=== PATIENT | male | born 1975 | race Caucasian/White ===

== ENCOUNTER → 2024-04-20 | Outpatient (CLI) | payer MEDICAID, SELFPAY ==
--- NOTE | 2024-04-20 14:34 | NEURO ---
NCS and/or EMG Patient Report Ordering Doctor: Rey Steiner DATE OF SERVICE: 04/20/24 Jose presents with complaints of pain and numbness in the left foot. He declines to have testing performed in the right lower limb. Electrodiagnostic findings: Left peroneal motor nerve demonstrates normal distal latency, amplitude and conduction velocity. Normal left tibial motor response. Normal tibial and peroneal F-waves on the left side. Normal left sural and left superficial peroneal responses. Needle EMG testing was performed the left lower limb. All muscles tested showed no evidence of denervation with normal motor unit action potentials. Electrodiagnostic impression: This is a normal electrodiagnostic study of the left lower limb. There is no electrodiagnostic evidence for peripheral neuropathy or lumbosacral radiculopathy. Multi Select Codes Neurology Neurology Interp Codes: 46811-85 Musc test done w/n test comp (interp) and 02502-26 Nrv cndj tst 5-6 studies (interp)
== END | disposition home or self-care (01) ==
PROVIDERS: PCP Student in an Organized Health Care Education/Training Program; Referring Provider Podiatrist; Visit Provider Podiatrist
DX: R20.2 Paresthesia of skin (principal)
CPT/HCPCS: 95886; 95909

== ENCOUNTER → 2024-05-10 | Outpatient (CLI) | payer MEDICAID, SELFPAY ==
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
== END | disposition home or self-care (01) ==
LOC: CT 18:28
PROVIDERS: PCP Student in an Organized Health Care Education/Training Program; Referring Provider Podiatrist; Visit Provider Podiatrist
DX: M19.072 Primary osteoarthritis, left ankle and foot (principal)
CPT/HCPCS: 73700

== ENCOUNTER 2024-06-17 07:34 | Day surgery (SDC) | payer MEDICAID, SELFPAY ==
[2024-06-17] VITALS (10 sets, daily range): BP systolic 90–125; BP diastolic 63–87; PULSE 69–83; RESP 16–18; TEMP 36.2–36.8; O2SAT 93–99; BMI 39.2
--- NOTE | 2024-06-17 08:20 | PCM.PRE.AN2 ---
ASA Classification* ASA Classification ASA Classification: 2 Assessment & Plan Anesthesia* Anesthesia Assessment Anesthesia Assessment: Discussed sedation and/or anesthesia options, risks, benefits, and alternatives with patient/parents/legal guardian/POA. Questions invited. The patient/parents/legal guardian/POA seems to understand and agrees to proceed with anesthesia plan. Reviewed the physical assessment, medical history, allergy history and patient home medications list prior to surgery/procedure/anesthetic and documented any changes. Performed airway and anesthesia risk assessments. Anesthesia Type Anesthesia Type: General Anesthesia Focused Assessment* Airway Assessment Mouth opens: >3 cm Mallampati Score: II Focused Labs Anesthesia Preop lab: CBC CHEMISTRY COAG Pre-Assessment Diagnosis/Proposed Procedure Planned Operative Procedure(s): Left subtaler joint fusion 2,3,4 hammertoe repair Anesthesia History Anesthesia History - clinical laboratory medical director: Anesthesia History - clinical laboratory medical director Hx Hospitalization No 06/16/24 13:17 Any Problems With Anesthesia No 06/16/24 13:17 Cholinesterase deficiency No 06/16/24 13:17 You/Your Family Experience No 06/16/24 13:17 fever (hyperthermia) with Relationship Recent Exposure to Contagious Disease Does patient have nerve No 06/16/24 13:17 stimulator Patient instructed to have device shut off --Does patient have Pacemaker or ICD? When Was Last Pacemaker Check QUESTION #4 FULL TEXT: You/Your Family Experience fever (hyperthermia) with Anesthesia Last Oral Intake Last Oral intake: Last Oral Intake NPO since Meds taken in AM with sips of water? 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 PONV - clinical laboratory medical director: PONV - clinical laboratory medical director Female No 06/16/24 13:17 HX of Motion Sickness No 06/16/24 13:17 HX of N/V After Surgery No 06/16/24 13:17 Non-Smoker Yes 06/16/24 13:17 Duration of Surgery greater Yes 06/16/24 13:17 than 60 minutes Number of Risk Factors 2 06/16/24 13:17 PONV Score Moderate Risk 06/16/24 13:17 Respiratory Assessment Respiratory Assessment - clinical laboratory medical director: Respiratory Tract Infection Hx - clinical laboratory medical director Hx Respiratory Tract Infection No 06/16/24 13:17 STOP Sleep Apnea STOP Sleep Apnea - clinical laboratory medical director: STOP Sleep Apnea - clinical laboratory medical director Hx Hypertension Yes: CONTROLLED WITH MEDS 06/16/24 13:17 Hx Sleep Apnea No 06/16/24 13:17 CPAP BIPAP Do you snore loudly (louder No 06/16/24 13:17 than talking or can be heard Do you often feel tired/ No 06/16/24 13:17 fatigued/ sleepy during daytime? Has anyone observed you stop No 06/16/24 13:17 breathing during sleep? STOP Results Negative 06/16/24 13:17 QUESTION #5 FULL TEXT : Do you snore loudly (louder than talking or can be heard through closed doors)? 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 Specify any problems Hx of Preganancy in last 3 N/A 06/16/24 13:17 Months Nurse Filling Out Transfusion DSCHRIBER 06/16/24 13:17 & Questions: Date: 06/16/24 06/16/24 13:17 Time: 13:18 06/16/24 13:17 Patient unable to answer at this time (ie. confused, unrespo /Reproduction History /Reproductive History - clinical laboratory medical director: /Reproductive Hx- clinical laboratory medical director Hx Now No 06/16/24 13:17 Gestational Age (in weeks): EDC: Hx Hx Para Hx Section SAB No 06/16/24 13:17 Active Medications Active Medications: Current Medications Generic Name Dose Route Start Last Admin Trade Name Freq PRN Reason Stop Dose Admin Cefazolin Sodium 3 gm/ N/A 30 mls @ 600 mls/hr 06/17/24 09:30 IV 06/17/24 09:32 PREOP ONE Sodium Chloride 1,000 mls @ 15 mls/hr 06/17/24 07:40 IV .Q48H WILLIAM PFSH Medical History Wears contact lenses Wears partial dentures Depression Anxiety Arthritis High cholesterol Restless legs Back pain History of ulceration Former smoker COPD (chronic obstructive pulmonary disease) History of pain when walking Cardiology follow-up encounter History of echocardiogram History of stress test Hypertension Hx of pilonidal cyst Home Medications ?Medication ?Instructions ?Recorded ?Last Taken ?Type albuterol sulfate 90 mcg/actuation 2 puff inhalation Q6H PRN PRN 06/16/24 Unknown History aerosol inhaler shortness of breath or wheezing amlodipine 10 mg tablet 10 mg PO BID 06/16/24 06/17/24 History atorvastatin 80 mg tablet 80 mg PO QHS 06/16/24 Unknown History carvedilol 6.25 mg tablet 6.25 mg PO BID 06/16/24 06/17/24 History escitalopram oxalate 10 mg tablet 10 mg PO DAILY 06/16/24 Unknown History losartan 100 mg tablet 100 mg PO DAILY 06/16/24 06/17/24 History tizanidine 6 mg capsule (Zanaflex) 6 mg PO BID RLS 06/16/24 Unknown History Allergy/AdvReac Type Severity Reaction Status Date / Time hydrochlorothiazide (hctz) Allergy Intermediate Other Verified 06/17/24 08:04 ZIA Inhibitors AdvReac Intermediate Other Verified 06/17/24 08:04 Surgical History History of tonsillectomy and adenoidectomy History of lumbar discectomy History of lumbar fusion Social History Smoking Status: Former smoker Review of Systems (Anesthesia) ROS Narrative System reviewed and no additional complaints, except as documented.
[2024-06-17] MEDS: 0.9% Normal Saline (1000mL) 1,000 ML 15 ML IV (08:37)
[2024-06-17] MEDS: Cefazolin 3 GM in Syringe 1 EACH IV (11:18)
--- NOTE | 2024-06-17 12:10 | RAD_ITS ---
EXAM: XR Left Foot, 2 Views CLINICAL INDICATION: LT SUBTALAR JOINT FUSION TECHNIQUE: Frontal and lateral views of the left foot. COMPARISON: No relevant prior studies available. FINDINGS: BONES/JOINTS: Spot fluoroscopic images were used intraoperatively. 18 images were obtained. Multiple fixation hardware is identified from the calcaneus to the talus. Total fluoroscopy time 175.4 seconds. Total radiation dose 2.24 mGy. No acute fracture. No dislocation. SOFT TISSUES: Unremarkable. No radiopaque foreign body. RAD/Foot 2 Views IMPRESSION: Fluoroscopic guidance was used intraoperatively. Please refer to the operative note for further details. Reading Location: [facility]
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
[2024-06-17] MEDS: Ketorolac 30 MG/ML Syringe IV (14:26)
--- NOTE | 2024-06-17 15:05 | PCM.POST.ANE ---
Anesthesia: Postop Eval I Current Vital Signs Temperature: 98.3 F Pulse Rate: 83 Blood Pressure: 116/75 Respiratory Rate: 18 Pulse Ox: 96 Oxygen Delivery Method: Room Air Assessment Airway patent: Yes Spontaneous unlabored respirations: Yes nausea: No Vomiting: No Anesthesia Complication: No Fluid Hydration Crystalloid volume administer (ml): 1,800 Total IV fluid infused: 1,800 Progress Note Anesthesia document: Postop Eval 1 completed: Yes
[2024-06-17] MEDS: oxyCODONE 5 MG Tablet 10 MG PO (15:17)
--- NOTE | 2024-06-17 15:17 | POSTOPAN2_ITS ---
Anesthesia Postop Eval I Sum Postop Eval Completion status Anesthesia document: Postop Eval 1 completed: Yes Anesthesia Postop Eval I Summary Anesthesia Postop Eval I Summary: Anesthesia Postop Eval I: Assessment Summary Airway patent Yes 06/17/24 15:06 [email or web address] Spontaneous unlabored Yes 06/17/24 15:06 [email or web address] [email or web address] respirations Mental status nausea No 06/17/24 15:06 [email or web address] [email or web address] Vomiting No 06/17/24 15:06 DELIVERY [email or web address] Anesthesia Postop Eval I: Fluid Summary Crystalloid volume administer 1,800 06/17/24 15:06 [email or web address] (ml) Colloids volume administered ( ml) Blood Product volume administered (ml) Total IV fluid infused 1,800 06/17/24 15:06 [email or web address] Anesthesia Postop Eval I: Summary Notes Anesthesia Complication No 06/17/24 15:06 [email or web address] Anesthesia Complication Comment: Post-operative progress note Anesthesia: Postop Eval II Evaluation Mental status: Awake Pain Level: 0 nausea: No Vomiting: No
--- NOTE | 2024-06-17 15:17 | PCM.POSTANE2 ---
Anesthesia Postop Eval I Sum Postop Eval Completion status Anesthesia document: Postop Eval 1 completed: Yes Anesthesia Postop Eval I Summary Anesthesia Postop Eval I Summary: Anesthesia Postop Eval I: Assessment Summary Airway patent Yes 06/17/24 15:06 [email or web address] Spontaneous unlabored Yes 06/17/24 15:06 [email or web address] respirations Mental status nausea No 06/17/24 15:06 [email or web address] Vomiting No 06/17/24 15:06 [email or web address] Anesthesia Postop Eval I: Fluid Summary Crystalloid volume administer 1,800 06/17/24 15:06 [email or web address] (ml) Colloids volume administered ( ml) Blood Product volume administered (ml) Total IV fluid infused 1,800 06/17/24 15:06 [email or web address] Anesthesia Postop Eval I: Summary Notes Anesthesia Complication No 06/17/24 15:06 [email or web address] Anesthesia Complication Comment: Post-operative progress note Anesthesia: Postop Eval II Evaluation Mental status: Awake Pain Level: 0 nausea: No Vomiting: No
--- NOTE | 2024-06-17 15:51 | SUR.PHASEII ---
no strikethrough noted when patient sitting up at bedside in phase 2
== END 2024-06-17 15:48 | disposition home or self-care (01) ==
LOC: SDC 07:34 → AC 07:35
PROVIDERS: PCP Student in an Organized Health Care Education/Training Program; Referring Provider Podiatrist; Visit Provider Podiatrist
PROC: (CPT 28725; principal; 2024-06-17 09:15)
DX: M19.072 Primary osteoarthritis, left ankle and foot (principal); J44.9 Chronic obstructive pulmonary disease, unspecified; E66.813 Obesity, class 3; Z68.41 Body mass index [BMI] 40.0-44.9, adult; E11.9 Type 2 diabetes mellitus without complications; M67.02 Short Achilles tendon (acquired), left ankle; M25.372 Other instability, left ankle; I10 Essential (primary) hypertension; Z79.51 Long term (current) use of inhaled steroids; Z79.899 Other long term (current) drug therapy; Z86.73 Personal history of transient ischemic attack (TIA), and cerebral infarction without residual deficits; Z87.891 Personal history of nicotine dependence
CPT/HCPCS: 28725; 29999; 64450; 01480; 73620; 76000; C1713; J2405

== ENCOUNTER → 2024-07-11 | Outpatient (CLI) | payer MEDICAID, SELFPAY | END | disposition home or self-care (01) | LOC: LABSPEC 16:24 | PROVIDERS: PCP Student in an Organized Health Care Education/Training Program; Visit Provider Student in an Organized Health Care Education/Training Program | DX: L97.322 Non-pressure chronic ulcer of left ankle with fat layer exposed (principal) | CPT/HCPCS: 87070; 87077; 87186; 87205 ==

== ENCOUNTER → 2024-10-22 | Outpatient (CLI) | payer MEDICAID, SELFPAY ==
--- NOTE | 2024-10-22 08:00 | CT_ITS ---
PROCEDURE: LEFT EXTREMITY LOWER WITHOUT CONTRAST 10/22/2024 REASON FOR EXAM: PRIMARY OSTEOARTHRITIS, PAIN TECHNIQUE: CT of the left lower ankle/foot without contrast. Multiplanar 2D reconstruction series were provided. One or more dose reduction techniques were used (e.g., Automated exposure control, adjustment of the mA and/or kV according to patient size, use of iterative reconstruction technique). RADIATION DOSE SUMMARY: CTDlvol: 15.35 mGy DLP: 458.6 mGycm COMPARISON: 05/10/2024 FINDINGS: Postoperative changes of talocalcaneal arthrodesis with 2 cannulated screw fixation through the subtalar joint. Hardware is intact, although there is mild lucency about the talar component of the superior fixation screw, suggestive of mild loosening. Multiple ghost tracts through the distal fibula, talus and calcaneus from previous metallic fixation hardware. No acute fracture or dislocation. Moderate degenerative arthrosis of the subtalar joint with loss of joint space, irregular cortical sclerosis and mild marginal osteophytosis. Remaining joint spaces of the ankle and foot are relatively well preserved. No noé osseous erosion/destruction or periosteal reaction. Probable mild pes planus, although this finding is difficult to assess on CT. Alignment is otherwise anatomic, with congruent ankle mortise. Mild dorsal and plantar calcaneal spurring. Mild nonspecific generalized soft tissue swelling/edema about the ankle and foot. No subcutaneous emphysema or soft tissue gas. CT/Extremity Lower without Contra IMPRESSION: 1. No acute or aggressive osseous abnormality. 2. Postoperative changes of talocalcaneal arthrodesis, with intact hardware alt katia there is evidence of mild loosening of the talar aspect of the superior fixation screw. 3. Moderate degenerative arthrosis of the subtalar joint. Reading Location: [id number]
--- OUTSIDE RECORDS SUMMARY | 2024-10-22 08:02 | XMS RPT_ITS | CCD ---
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 the left ankle/foot performed without IV contrast enhancement. Sagittal and coronal reconstructed images were performed for better visualization of the horizontal structures. COMPARISON: None. FINDINGS: Anatomic alignment. There is mild spurring involving the distal tibia. Minimal spurring involving the dorsal anterior talus. Hallux valgus deformity and early degenerative changes involving the 1st MTP joint. No obvious fractures or dislocations are identified. No bony destructive lesions are seen. Os trigonum. Small plantar and posterior calcaneal enthesophytes. Overlying soft tissues appear intact. No radiopaque foreign bodies or drainable fluid collections are seen. CT/Extremity Lower without Contra IMPRESSION: No acute fractures or dislocations are identified. Hallux valgus deformity and mild degenerative changes, as detailed above. One or more dose reduction techniques were used (e.g., Automated exposure control, adjustment of the mA and/or kV according to patient size, use of iterative reconstruction technique). Reading Location: [facility] CC: ADRIANA Steiner; Dr. Nellie Loyola MD Ship Painter Helper: Signed Normal [facility] NCS and/or EMG Patienton NCS and/or EMG Patient [facility] Pulmonary Services/Neurology [address] [place] [address] MR#: [id number] Acct: [id number] Name: JAMES RODRIGUEZ II Rep #: [id number] : 1975 48 From: Amish Valencia MD Referring Dr: Rey Steiner DPM Status: REG CL I Location: PSN Date: 04/20/24 Sex: M C NCS and/or EMG Patient Report Ordering Doctor: Rey Steiner DATE OF SERVICE: 04/20/24 James presents with complaints of pain and numbness in the left foot. He declines to have testing performed in the right lower limb. Electrodiagnostic findings: Left peroneal motor nerve demonstrates normal distal latency, amplitude and conduction velocity. Normal left tibial motor response. Normal tibial and peroneal F-waves on the left side. Normal left sural and left superficial peroneal responses. Needle EMG testing was performed the left lower limb. All muscles tested showed no evidence of denervation with normal motor unit action potentials. Electrodiagnostic impression: This is a normal electrodiagnostic study of the left lower limb. There is no electrodiagnostic evidence for peripheral neuropathy or lumbosacral radiculopathy. Multi Select Codes Neurology Neurology Interp Codes: 50193-05 Musc test done w/n test comp (interp) and 17489-06 Nrv cndj tst 5-6 studies (interp) 04/20/246 Date Amish Valencia MD CC: DPM Dr. Rey Steiner; Dr. Amish Valencia MD; Dr. Nellie Loyola MD Date Dictated: 04/20/241433 Date Transcribed: 04/20/241433 Ship Painter Helper: AA Signed Normal [facility] CBC (NO DIFF)on 03-14-2024 CBC panel Auto (Bld) Normal [facility] Comment on above: Result Comment: CBC( WITHOUT DIFFERENTIAL) Performed By: #### 2 03400 #### [facility],[address] [place] [address] Erythrocyte distribution width (RBC) [Ratio] 13.7 % Normal 12.0 - 15.6 [facility] Comment on above: Performed By: #### 2 63331 #### [facility],[address] [place] [address] 22060 Hematocrit (Bld) [Volume fraction] 44.9 % Normal 40.0 - 52.0 [facility] Comment on above: Performed By: #### 2 87467 #### [facility],[address] [place] [address] 97374 Hemoglobin (Bld) [Mass/Vol] 14.8 g/dL Normal 13.0 - 17.5 [facility] Comment on above: Performed By: #### 2 63255 #### [facility],[address] [place] [address] 99773 MCH (RBC) [Entitic mass] 31 pg Normal 27 - 33 [facility] Comment on above: Performed By: #### 2 16390 #### [facility],[address] [place] [address] 45659 MCHC 33 X10 3 Normal 32 - 36 [facility] Comment on above: Performed By: #### 2 59156 #### [facility],[address] [place] [address] 86034 MCV (RBC) [Entitic vol] 93 fL Normal 81 - 98 [facility] Comment on above: Performed By: #### 2 61008 #### [facility],[address] [place] [address] 64772 PLATELET 337 x10EE3/UL Normal 150 - 450 [facility] Comment on above: Performed By: #### 2 27547 #### [facility],[address] [place] [address] 84635 Platelet mean volume (Bld) [Entitic vol] 7.5 fL Normal 6.4 - 10.5 [facility] Comment on above: Performed By: #### 2 92489 #### [facility],[address] [place] [address] 87232 RBC 4.81 x 10EE6/UL Normal 4.50 - 6.00 [facility] Comment on above: Performed By: #### 2 39836 #### [facility],[address] [place] [address] 98140 WBC 7.9 x 10EE3/UL Normal 4.5 - 10.8 [facility] Comment on above: Performed By: #### 2 36721 #### [facility],[address] [place] [address] 86297 CMP with eGFRon 03-14-2024 AGE 48 years Normal [facility] Comment on above: Performed By: #### 2 36036 #### [facility],[address] [place] [address] 86301 Albumin [Mass/Vol] 3.5 g/dL Normal 3.4 - 5.0 [facility] Comment on above: Performed By: #### 2 69066 #### [facility],[address] [place] [address] 13004 Albumin/Globulin [Mass ratio] 0.9 {ratio} Normal 0.9 - 1.6 [facility] Comment on above: Performed By: #### 2 09438 #### [facility],[address] [place] [address] 81617 ALK PHOS 91 U/L Normal 46 - 116 [facility] Comment on above: Performed By: #### 2 01052 #### [facility],[address] [place] [address] 46089 ALT [Catalytic activity/Vol] 54 U/L Normal 16 - 63 [facility] Comment on above: Performed By: #### 2 59527 #### [facility],[address] [place] [address] 45867 Anion gap [Moles/Vol] 11 mmol/L Normal 10 - 20 [facility] Comment on above: Performed By: #### 2 13535 #### [facility],[address] [place] [address] 41206 AST [Catalytic activity/Vol] 24 U/L Normal 15 - 37 [facility] Comment on above: Performed By: #### 2 42805 #### [facility],[address] [place] [address] 08077 B/C RATIO 17 ratio Normal 0 - 30 [facility] Comment on above: Performed By: #### 2 45398 #### [facility],[address] [place] [address] 33754 Bilirubin [Mass/Vol] 0.4 mg/dL Normal 0.2 - 1.0 [facility] Comment on above: Performed By: #### 2 19695 #### [facility],[address] [place] [address] 66762 Calcium [Mass/Vol] 8.9 mg/dL Normal 8.5 - 10.1 [facility] Comment on above: Performed By: #### 2 08286 #### [facility],[address] [place] [address] 17354 Chloride [Moles/Vol] 106 mmol/L Normal 98 - 107 [facility] Comment on above: Performed By: #### 2 79953 #### [facility],[address] [place] [address] 43332 CMP with eGFR Normal [facility] Comment on above: Result Comment: COMP REHENSIVE METABOLIC PANEL Performed By: #### 2 09169 #### [facility],[address] [place] [address] 47000 CO2 [Moles/Vol] 27.5 mmol/L Normal 21.0 - 32.0 [facility] Comment on above: Performed By: #### 2 59046 #### [facility],[address] [place] [address] 43151 Creatinine [Mass/Vol] 1.15 mg/dL Normal 0.70 - 1.30 [facility] Comment on above: Performed By: #### 2 40801 #### [facility],[address] [place] [address] 09100 GFR/1.73 sq M.predicted among non-blacks MDRD (S/P/Bld) [Vol rate/Area] mL/min/{1.73_m2} Normal 60 - 999 [facility] Comment on above: Performed By: #### 2 11622 #### [facility],[address] [place] [address] 00738 Result Comment: ACCO RDING TO THE NATIONAL KIDNEY DISEASE EDUCATION PROGRAM(NKDE), A NORMAL eGFR IS A VALUE GREATER THAN OR EQUAL TO 60 ML/MIN/1.73 SQ METERS. CHRONIC KIDNEY DISEASE: <60mL/MIN/1.73 SQ METERS KIDNEY FAILURE: <15mL/MIN/1.73 SQ METERS THIS TEST SHOULD ONLY BE USED FOR PATIENTS 18 YEARS OF AGE AND OLDER. Globulin (S) [Mass/Vol] 4.1 g/dL High 1.5 - 3.8 [facility] Comment on above: Performed By: #### 2 76293 #### [facility],[address] [place] [address] 82374 Glucose [Mass/Vol] 105 mg/dL Normal 74 - 106 [facility] Comment on above: Performed By: #### 2 99497 #### [facility],[address] [place] [address] 79814 Potassium [Moles/Vol] 3.6 mmol/L Normal 3.5 - 5.1 [facility] Comment on above: Performed By: #### 2 96309 #### [facility],[address] [place] [address] 22745 Protein [Mass/Vol] 7.6 g/dL Normal 6.4 - 8.2 [facility] Comment on above: Performed By: #### 2 31275 #### [facility],[address] [place] [address] 64447 Sodium [Moles/Vol] 141 mmol/L Normal 136 - 145 [facility] Comment on above: Performed By: #### 2 49228 #### [facility],[address] [place] [address] 97711 Urea nitrogen [Mass/Vol] 19 mg/dL High 7 - 18 [facility] Comment on above: Performed By: #### 2 52039 #### [facility],[address] [place] [address] 20932 LIPID PROFILEon 03-14-2024 Cholesterol [Mass/Vol] 175 mg/dL Normal 0 - 240 [facility] Comment on above: Performed By: #### 2 46898 #### [facility],[address] [place] [address] 25297 Cholesterol in HDL [Mass/Vol] 47 mg/dL Normal 40 - 60 [facility] Comment on above: Performed By: #### 2 99019 #### [facility],[address] [place] [address] 55121 Cholesterol in LDL [Mass/Vol] 114 mg/dL Normal 0 - 129 [facility] Comment on above: Performed By: #### 2 08703 #### [facility],[address] [place] [address] 64564 Cholesterol.total/Ch olesterol in HDL [Mass ratio] 3.7 {ratio} Normal 0.0 - 5.0 [facility] Comment on above: Performed By: #### 2 61552 #### [facility],[address] [place] [address] 09295 Lipid 1996 panel Normal [facility] Comment on above: Result Comment: LIPI D PROFILE Performed By: #### 2 10702 #### [facility],[address] [place] [address] 38292 Triglyceride [Mass/Vol] 72 mg/dL Normal 0 - 150 [facility] Comment on above: Performed By: #### 2 22234 #### [facility],[address] [place] [address] 83123 TSHon 03-14-2024 TSH Qn 2.32 m[IU]/L Normal 0.35 - 3.74 [facility] Comment on above: Performed By: #### 2 90246 #### [facility],[address] [place] [address] 50772 FOOT COMPLETE LTon FOOT COMPLETE LT [address] [address] Patient: JAMES RODRIGUEZ Phone#: : 1975 Age: 48 Gender: M Pt. Type: Out Account: [id number] Location: [facility] Ordering: NELLIE LOYOLA Exam Date: 03/04/2024/15:39 Family Phys: Charge Code: 665735 Physician: Nobles Order #: [id number] Dose#: PROCEDURE: X-RAY FOOT LT COMPLETE MIN 3 VIEWS COMPARISON: None. INDICATIONS: Chronic foot pain. FINDINGS: BONES: Normal. No significant arthropathy or acute abnormality. SOFT TISSUES: Negative. No visible soft tissue swelling. EFFUSION: None visible. OTHER: Negative. CONCLUSION: No acute disease. Dictated by: Anitha Sanz MD on 03/04/2024 at 15:53 Approved by: Anitha Sanz MD on 03/04/2024 at 15:54 Normal [facility] EMERGENCY DEPARTMENTon 05-10 [place] [address] HEALTH INFORMATION MANAGEMENT EMERGENCY DEPARTMENT : [phone] Signed with Sandeep Patient: JAMES RODRIGUEZ II Acct:[id number] MR UN: [id number] : 1975 Sex: M Loc: ED ADM Date: Room/Bed: DISC Date: 05/03/21 History of Present Illness - General Symptom onset: TODAY HPI: PATIENT ARRIVES BY [facility] FROM [facility] DUE TO HIGH BLOOD PRESSURE. EMS STATES PATIENTS BP WAS 190/150'S AND THAT PATIENT HAD BEEN GIVEN THE WRONG BLOOD PRESSURE MEDS UP TILL TODAY. UPON ARRIVAL HERE BP 139/72. ER attending note: Nursing note reviewed and appreciated. Patient was brought into the emergency room from [facility] due to high blood pressure there was some concern about mixup of his medication.. His blood pressure however at arrival was 139/72. Patient admitted some intermittent discomfort in the chest denies pain in the arms or jaw or cold sweats, dizziness or lightheadedness, blackout or pass out. Denies any dizziness lightheadedness. Denies any pain or swelling legs. Also denies any vomiting or diarrhea. He denies any substance abuse. Nurses Notes Reviewed and Agreed With?: Yes EMS Run Sheet Reviewed: No Source: Patient, RN notes reviewed Mode of Transport: Ambulatory - General Chief Complaint: Hypertension Time Seen by Provider: 05/03/21 17:34 - Related Data Home Medications Medication Instructions Recorded Confirmed Prednisone [Prednisone 20 mg 60 mg PO DAILY #15 tablet 07/19/18 Tablet] Allergies Allergy/AdvReac Type Severity Reaction Status Date / Time ZIA Inhibitors AdvReac Mild Verified 08/31/18 17:09 Review of System - Constitutional Constitutional: Present: see HPI, Well developed, Well nourished, well hydrated, Non-toxic, weakness. Absent: chills, diaphoresis, fever, malaise, Cachectic, Malnourished, Lethargic, Dry/Cracked lips, Dry Mucous Membranes - Nose,Throat,Mouth Nose (ROS): Present: no symptoms reported Throat: Present: no symptoms reported Mouth: Present: no symptoms reported - Respiratory Respiratory: Present: no symptoms reported. Absent: cough, sputum, orthopnea, short of breath, stridor, wheezing, hemoptysis - CV Cardiology: Present: other (High blood pressure that she had normal blood pressure in the ED). Absent: chest pain, edema, palpitations, syncope, pleuritic CP, CP with movement - GI Gastrointestinal/Abdominal : Present: no symptoms reported. Absent: abdominal pain, constipation, diarrhea, incontinent of stool, nausea, vomiting - Genitourinary Symptoms: Absent: no symptoms reported, flank pain, hematuria, incontinence - Neuro Neurological: Absent: headache, numbness, paresthesia, seizure, tingling, tremors, weakness, saddle anesthesia ED PMH/Social HX/Family HX - Respiratory Hx Respiratory Disorders: No - Cardiovascular Hx Cardiac Disorders: Yes PMH--Cardiovascular: HTN Other CV PSH: ENLARGED HEART - Neurological Hx Neurological Disorder: Yes Other Neuro PMH: STROKE - Endocrine Hx Endocrine Disorders: Yes PMH--Endocrine History: Hypothyroidism - Gastrointestinal Hx Gastrointestinal Disorders: No - Genitourinary Hx Genitourinary Disorders: No - Musculoskeletal Hx Musculoskeletal Disorders: No - Psychological Hx Psychosocial Problems: No - HEENT Hx Ear, Nose Throat Disorders: No - Cancer Hx Cancer: No - Social History Able to Read: Yes Able to Write: Yes Smoking Status: Smoking Status Unknown Hx Chewing Tobacco Use: No Hx Physical Abuse: No Hx Emotional Abuse: No Hx Suspected Abuse: No - [place]/Gender ID What is your current Gender Identity? Choose all that Apply: Male - [place]-Suicide Severity Rating Scale 1) Wish to be :: No 2) Suicidal Thoughts:: No 6) Suicidal Behavior Question (A): LIFETIME: No 6) Suicidal Behavior Question (B): PAST 3 MONTHS: No General Exam - General Constitutional: Present: see HPI, Well developed, Well nourished, well hydrated. Absent: Non-toxic, chills, diaphoresis, fever, malaise, weakness, Lethargic, Dry/Cracked lips - Head Head exam: Present: atraumatic, normocephalic, normal inspection - Eye Eye exam: Present: normal apperance, normal accomodation - ENT ENT exam: Present: normal orophraynx, No Nasal Discharge, normal external ear exam - Neck Neck exam: Present: full ROM, Supple. Absent: tenderness, meningismus - Respiratory Respiratory exam: Present: lungs clear and equal bilaterally. Absent: respiratory distress, rhonchi, stridor, decreased breath sounds, accessory muscle use, chest wall tenderness, prolonged expiratory phase, Intercostal Retractions, Other Retractions, Flail segment, Ecchymosis, Crepitus - Ca (more content not included)... Normal [facility] CBC w/Auto Differentialon Basophils Abs. # 0.04 K/uL Normal 0.00-0.10 [facility] Comment on above: Performed By: #### C BCS #### [address] [place] [address] Basophils/100 WBC (Bld) 0.5 % Normal 0.2-1.0 [facility] Comment on above: Performed By: #### C BCS #### [facility] [address] [place] [address] Eosinophils (Bld) [#/Vol] 0.20 10*3/uL Normal 0.00-0.20 [facility] Comment on above: Performed By: #### C BCS #### [facility] [address] [place] [address] Eosinophils/100 WBC (Bld) 2.6 % Normal 0.9-2.9 [facility] Comment on above: Performed By: #### C BCS #### [facility] [address] [place] [address] Erythrocyte distribution width (RBC) [Ratio] 13.2 % Normal 11.5-14.5 [facility] Comment on above: Performed By: #### C BCS #### [facility] [address] [place] [address] Hematocrit (Bld) [Volume fraction] 40.9 % Normal 36.7-50.6 [facility] Comment on above: Performed By: #### C BCS #### [facility] [address] [place] [address] Hemoglobin (Bld) [Mass/Vol] 13.3 g/dL Normal 12.4-17.3 [facility] Comment on above: Performed By: #### C BCS #### [facility] [address] [place] [address] Imm Grans % 0.10 % Normal 0.00-1.00 [facility] Comment on above: Performed By: #### C BCS #### [facility] [place] [address] [place] [address] Imm Grans Absolute # 0.01 K/uL Normal 0.00-0.10 [facility] Comment on above: Performed By: #### C BCS #### [facility] [address] [place] [address] Lymphocytes (Bld) [#/Vol] 2.20 10*3/uL Normal 1.30-2.90 [facility] Comment on above: Performed By: #### C BCS #### [facility] [address] [place] [address] Lymphocytes/100 WBC (Bld) 28.5 % Normal 17.0-45.5 [facility] Comment on above: Performed By: #### C BCS #### [facility] [address] [place] [address] MCH (RBC) [Entitic mass] 30.0 pg Normal 27.0-31.0 [facility] Comment on above: Performed By: #### C BCS #### [facility] [address] [place] [address] MCHC (RBC) [Mass/Vol] 32.5 g/dL Low 33.0-37.0 [facility] Comment on above: Performed By: #### C BCS #### [facility] [address] [place] [address] MCV (RBC) [Entitic vol] 92.1 fL Normal 80.0-94.0 [facility] Comment on above: Performed By: #### C BCS #### [facility] [address] [place] [address] Monocytes (Bld) [#/Vol] 0.90 10*3/uL High 0.30-0.80 [facility] Comment on above: Performed By: #### C BCS #### [facility] [place] [address] [place] [address] Monocytes/100 WBC (Bld) 11.5 % Normal 5.5-11.7 [facility] Comment on above: Performed By: #### C BCS #### [facility] [place] [address] [place] [address] Neutrophils Abs. # 4.36 K/uL Normal 2.20-4.80 [facility] Comment on above: Performed By: #### C BCS #### [facility] [place] [address] [facility] [place] [address] Neutrophils/100 WBC (Bld) 56.8 % Normal 43.0-65.0 [facility] Comment on above: Performed By: #### C BCS #### [facility] [place] [address] [facility] [place] [address] Platelet mean volume (Bld) [Entitic vol] 9.2 fL Normal 7.4-10.4 [facility] Comment on above: Performed By: #### C BCS #### [facility] [place] [address] [facility] [place] [address] Platelets (Bld) [#/Vol] 287 10*3/uL Normal 148-402 [facility] Comment on above: Performed By: #### C BCS #### [facility] [place] [address] [facility] [place] [address] RBC (Bld) [#/Vol] 4.44 10*6/uL Normal 4.13-5.[address] [facility] Comment on above: Performed By: #### C BCS #### [facility] [place] [address] [facility] [place] [address] WBC (Bld) [#/Vol] 7.7 10*3/uL Normal 3.6-10.8 [facility] Comment on above: Performed By: #### [facility] #### [facility] [address] [address] CHEST APon 05-03-2021 CHEST AP EXAMINATION: ONE XRAY VIEW OF THE CHEST 05/03/2021 6:14 pm COMPARISON: Chest, single view 04/07/2019 HISTORY: ORDERING SYSTEM PROVIDED HISTORY: Chest Pain FINDINGS: A single portable AP view of the chest was obtained. Heart, mediastinum, and pulmonary vasculature are within normal limits. Lungs and pleural spaces are clear. IMPRESSION: No active cardiopulmonary disease. Normal [facility] CT BRAIN WOon 05-03-2021 CT BRAIN WO EXAMINATION: CT OF THE HEAD WITHOUT CONTRAST 05/03/2021 8:29 pm TECHNIQUE: CT of the head was performed without the administration of intravenous contrast. Dose modulation, iterative reconstruction, and/or weight based adjustment of the mA/kV was utilized to reduce the radiation dose to as low as reasonably achievable. COMPARISON: None. HISTORY: ORDERING SYSTEM PROVIDED HISTORY: HTN FINDINGS: BRAIN/VENTRICLES: There is no acute intracranial hemorrhage, mass effect or midline shift. No abnormal extra-axial fluid collection. The garcia-white differentiation is maintained without evidence of an acute infarct. There is no evidence of hydrocephalus. ORBITS: The visualized portion of the orbits demonstrate no acute abnormality. SINUSES: The visualized paranasal sinuses and mastoid air cells demonstrate no acute abnormality. SOFT TISSUES/SKULL: No acute abnormality of the visualized skull or soft tissues. IMPRESSION: No acute intracranial abnormality. Normal [facility] CTA CHEST Won 05-03-2021 CTA CHEST W EXAMINATION: CTA OF THE CHEST 05/03/2021 8:35 pm TECHNIQUE: CTA of the chest was performed after the administration of intravenous contrast. Multiplanar reformatted images are provided for review. MIP images are provided for review. Dose modulation, iterative reconstruction, and/or weight based adjustment of the mA/kV was utilized to reduce the radiation dose to as low as reasonably achievable. COMPARISON: None. HISTORY: ORDERING SYSTEM PROVIDED HISTORY: Elevated D-dimer, right leg edema FINDINGS: Pulmonary Arteries: Pulmonary arteries are adequately opacified for evaluation. No evidence of intraluminal filling defect to suggest pulmonary embolism. Main pulmonary artery is normal in caliber. Mediastinum: No evidence of mediastinal lymphadenopathy. The heart and pericardium demonstrate no acute abnormality. There is no acute abnormality of the thoracic aorta. Lungs/pleura: The lungs are without acute process. No focal consolidation or pulmonary edema. No evidence of pleural effusion or pneumothorax. Upper Abdomen: Limited images of the upper abdomen are unremarkable. Soft Tissues/Bones: No acute bone or soft tissue abnormality. IMPRESSION: No evidence of pulmonary embolism or acute pulmonary abnormality. Normal [facility] Comprehensive Metabolic Pane eva 05-03-2021 Albumin [Mass/Vol] 3.6 g/dL Normal 3.4-5.0 [facility] Comment on above: Performed By: #### C MP ####[facility] [place] [address] Albumin/Globulin [Mass ratio] 0.9 {ratio} Low 1.1-2.5 [facility] Comment on above: Performed By: #### C MP ####[facility] [place] [address] ALP [Catalytic activity/Vol] 110 U/L Normal 54-112 [facility] Comment on above: Performed By: #### C MP ####[facility] [place] [address] ALT [Catalytic activity/Vol] 37 U/L Normal 13-66 [facility] Comment on above: Performed By: #### C MP ####[facility] [place] [address] Anion gap [Moles/Vol] 11.7 mmol/L Normal 8.0-16.0 [facility] Comment on above: Performed By: #### C MP ####[facility] [place] [address] AST [Catalytic activity/Vol] 20 U/L Normal 3-39 [facility] Comment on above: Performed By: #### C MP ####[facility] [address] [place] [address] Bilirubin [Mass/Vol] 0.18 mg/dL Normal 0.00-0.99 [facility] Comment on above: Performed By: #### C MP ####[facility] [address] [place] [address] Calcium [Mass/Vol] 8.7 mg/dL Normal 8.2-10.0 [facility] Comment on above: Performed By: #### C MP ####[facility] [address] [place] [address] Chloride [Moles/Vol] 105 mmol/L Normal 94-110 [facility] Comment on above: Performed By: #### C MP ####[facility] [address] [place] [address] CO2 [Moles/Vol] 29 mmol/L Normal 21-34 [facility] Comment on above: Performed By: #### C MP ####[facility] [address] [place] [address] Creatinine [Mass/Vol] 0.99 mg/dL Normal 0.50-1.17 [facility] Comment on above: Performed By: #### C MP ####[facility] [address] [place] [address] EGFR Other Races >60 Normal >60 [facility] Comment on above: Performed By: #### C MP ####[facility] [address] [place] [address] GFR/1.73 sq M.predicted among blacks MDRD (S/P/Bld) [Vol rate/Area] mL/min/{1.73_m2} Normal >60 [facility] Comment on above: Result Comment: Driver'S License Examiner samuel Kidney Disease less than 60 mL/min/1.73 m2 Kidney Failure less than 15 mL/min/1.73 m2 Average estimated GFR by age: 40-49 years 99 mL/min/1.73 m2 Performed By: #### C MP ####[facility] [address] [facility] [address] Globulin (S) [Mass/Vol] 3.9 g/dL Normal 1.5-4.5 [facility] Comment on above: Performed By: #### C MP ####[facility] [address] [facility] [address] Glucose [Mass/Vol] 99 mg/dL Normal 65-100 [facility] Comment on above: Performed By: #### C MP ####[facility] [address] [facility] [address] Potassium [Moles/Vol] 3.7 mmol/L Normal 3.3-5.1 [facility] Comment on above: Performed By: #### C MP ####[facility] [place] [address] Protein [Mass/Vol] 7.5 g/dL Normal 6.1-8.2 [facility] Comment on above: Performed By: #### C MP ####[facility] [address] [facility] [address] Sodium [Moles/Vol] 142 mmol/L Normal 132-145 [facility] Comment on above: Performed By: #### C MP ####[facility] [address] [facility] [address] Urea nitrogen [Mass/Vol] 12.1 mg/dL Normal 3.2-26.9 [facility] Comment on above: Performed By: #### C MP ####[facility] [place] [address] Urea nitrogen/Creatinine [Mass ratio] 12 mg/mg Normal 6-20 [facility] Comment on above: Performed By: #### C MP ####[facility] [place] [address] D-Dimeron 05-03-2021 D-Dimer 0.60 mg/L FEU Critically high 0.00-0.49 [facility] Comment on above: Result Comment: Nega tive Predictive Value = <0.50 mg/L FEU This D-dimer assay may be used in conjunction with a non-high clinical pretest probability (PTP) assessment model to exclude pulmonary embolism (PE) disease. In addition, it is indicated as an aid in the exclusion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 Patient Name: JAMES RODRIGUEZ Gender: Male : 1975 Age: 43 Years Message Text: [facility] [id number] denial mmo need correct pt type Day Reviewed: 02/24/2019 11:56:00 EST Review Type: Day 1 Guideline: PAYER DENIAL. Review Outcome: Met Reviewer: Rosa Hickman RN System: [employer] Manual Episode: Response Reference Number: [id number] Case Status: See Messages Message: 02/22/2019 16:03:25 Per physician reviewer DRG admit denied. * Member with leg rash, no cellulitis, no hemodynamic instability, and afebrile, intensity of service not beyond observation. * The attending physician, nurse practitioner or physician s metal moulder's assistant who is actively providing care may schedule a phone conversation within 14 calendar days of the denial by calling [phone], option #1 then option #1 again prior to filing an appeal. Any additional information submitted in writing will be processed as an appeal. Next Review Date: 02/22/2019 Approved To Date: CASE FORWARD TO DENIALS TEAM. Secondary Review: Reason for Referral: Issue Denial External Reviewer: Yes Normal [facility] CAL Reflexon 02-28-2019 Nuclear Ab Qn (S) Positive Abnormal NEGATIVE-N E GATIVE [facility] Comment on above: Performed By: #### 3 0341-2 #### SAH SED RATE #### 54033-6 #### [facility], [address] [place] [address]. CAL Reflex Panelon 9 Nuclear Ab (S) [Titer] 1:80 Abnormal <1:80 [facility] Comment on above: Performed By: #### 3 173-2, 5902-2 #### [facility], [address] [place] [address]. Nuclear Ab pattern (S) [Interp] SEENOTE Normal [facility] Comment on above: Result Comment: Felisha shyam: Homogeneous The Homogeneous pattern is associated with antibodies to double-stranded DNA or histones. This pattern is seen most frequently in systemic lupus erythematosus (SLE) and drug-induced lupus. TEST PERFORMED BY Jascha [address] [place] [id number] Performed By: #### 3 173-2, 5902-2 #### [facility], [address], [place]. Nuclear Ab Ql (S) Positive Abnormal NEGATIVE-N E GATIVE [facility] Comment on above: Performed By: #### 3 173-2, 5902-2 #### [facility], [address], [place]. Anti DIRECTOR OF GOVERNMENT SALES Antibodyon 02-29-20 19 Ribonucleoprotein extractable nuclear Ab Ql (S) 2 Unit Normal <20 [facility] Comment on above: Result Comment: Refe rence Range: Negative <20 Units Weak Positive 20 - 39 Units Moderate Positive 40 - 80 Units Strong Positive >80 Units Performed By: #### 3 173-2, 5902-2 #### [facility], [address], [place]. Anti Scleroderma (Scl-70)on 02-28-2019 SCL-70 extractable nuclear Ab Ql (S) 14 Unit Normal <20 [facility] Comment on above: Result Comment: Refe rence Range: Negative >20 Units Weak Positive 20 - 39 Units Moderate Positive 40 - 80 Units Strong Positive >80 Units Performed By: #### 3 173-2, 5902-2 #### [facility], [address], [place]. Anti Avila Antibodyon 2018 Avila extractable nuclear Ab Qn (S) 2 Unit Normal <20 [facility] Comment on above: Result Comment: Refe rence Range: Negative <20 Units Weak Positive 20 - 39 Units Moderate Positive 40 - 80 Units Strong Positive >80 Units Performed By: #### 3 173-2, 5902-2 #### [facility], [address] [place], [place]. DNA Antibody Double Strandon 02-28-2019 DNA double strand Ab Qn (S) 50 [IU]/mL Normal <200 [facility] Comment on above: Result Comment: Anti -dsDNA range Interpretation 0 - 200 IU/mL Negative 201 - 300 IU/mL Equivocal 301 - 400 IU/mL Weak Positive 401 - 800 IU/mL Moderate Positive >=801 IU/mL Strong Positive Performed By: #### 3 0341-2 #### SAH SED RATE #### 21857-4 #### [facility], [address], [place]. JO1 Antibodyon 02-28-2019 Krystin-1 extractable nuclear Ab Ql (S) 2.0 Unit Normal [facility] Comment on above: Result Comment: Krystin-1 IgG Antibody Interpretation: Negative: <20 Units Weak Positive: 20-39 Units Moderate Positive: 40-80 Units Strong Positive: >80 Units Performed By: #### 3 173-2, 5902-2 #### [facility], [address], [place]. Sjogren's Antibodies (SSA/SS B)on 02-28-2019 Sjogrens syndrome-A extractable nuclear Ab Qn (S) 3 Unit Normal <20 [facility] Comment on above: Result Comment: Refe rence Range: Negative <20 Units Weak Positive 20 - 39 Units Moderate Positive 40 - 80 Units Strong Positive >80 Units Performed By: #### 3 173-2, 5902-2 #### [facility], [address], [place]. Sjogrens syndrome-B extractable nuclear Ab Qn (S) 3 Unit Normal <20 [facility] Comment on above: Result Comment: Refe rence Range: Negative <20 Units Weak Positive 20 - 39 Units Moderate Positive 40 - 80 Units Strong Positive >80 Units Performed By: #### 3 173-2, 5902-2 #### [facility], [address], [place]. HIV 1 Antibodyon 02-23-2019 HIV 1 Ab Ql (S) NONREAC Normal NONREAC [facility] Comment on above: Result Comment: This is a 4th generation test (P24 AG,HIV-1 AB, HIV-2 AB) Specimens with preliminary reactive results will be confirmed by HIV1/2 Differentiation test ([employer]). THE IDENTITY OF A PERSON ON WHOM AN HIV TEST HAS BEEN ORDERED AND THE RESULTS OF THAT TEST ARE CONFIDENTIAL This information is confidential and protected from disclosure by state law. You shall make no further disclosure of this information without the specific written and informed release of the individual tested or as otherwise permitted by law. A person who knowingly violates this confidentiality may be found liable in a civil action and be responsible for compensitory damages and equitable relief. Performed By: #### 3 173-2, 5902-2 #### [facility], [address] [place] [address]. Neutrophil Cytoplasm Antibod y IDon 02-23-2019 Neutrophil cytoplasmic Ab.classic Qn (S) <1:20 Normal <1:20 [facility] Comment on above: Result Comment: Test performed at [facility], [address] [place] [address] Michael Thompson MD - District Adviser Performed By: #### 3 0341-2 #### SAH SED RATE #### 73735-6 #### [facility], [address] [place] [address]. Neutrophil cytoplasmic Ab.perinuclear Qn (S) <1:20 Normal <1:20 [facility] Comment on above: Performed By: #### 3 0341-2 #### SAH SED RATE #### 61880-8 #### [facility], [address] [place] [address]. Patient Summaryon 02-23-2019 Patient Summary PATIENT DISCHARGE INSTRUCTIONS If you are having an emergency and are not able to reach your physician, CALL 911 or go to the nearest emergency room and take this document with you. [facility] 02/23/19 10:01 [address] [place]. [address] PATIENT INFORMATION ------ Name: JAMES RODRIGUEZ Address: [address] [place] [id number] Age: 43 Years Phone: [phone] : 1975 12:00 Sex: Male Race: White Ethnicity: Not Hispan/Lat Admitted From: [facility] Medical Service: Internal Medicine Nurse Unit/Bed: (SD) 3P 0381-01 Admit Date: 02/22/2019 01:24 PCP: Manuel Sue NP PHYSICIANS INVOLVED WITH CARE Attending Physicians: None found Admitting Physician: Tim Hayes MD - Internal Medicine Primary Care Physician:Manuel Sue NP,Nurse Practitioner, - Consults: Mi WALDRON , Patric Bell - Internal Medicine, Infectious Disease YOU WERE TREATED IN THE HOSPITAL FOR: 1:Atypical rash; 2:Cellulitis of leg FOLLOW-UP APPOINTMENTS: Provider: Specialty: Address: Date: Manuel Sue NP Nurse Practitioner [address] [place] [address] [address] [facility] [address] (1) 7 to 10 days ALLERGIES: ZIA inhibitors : Reaction:Cough Detergents : Reaction:Hives or rash MEASUREMENTS: Last Charted: Weight: Admission 118.0 kg /260 lbs 2 oz ( 02/22/19 00:49:00 ) MEDICATIONS For: JAMES RODRIGUEZ This is your list of medication(s). Keep it with you at all times. Your doctor may have changed doses, add, held or stopped some of your medications. Please share this information with your family doctor. Carry this list of medications with you in case of an emergency. Update it when medications are stopped, doses are changed, or new medications (including bhny-cvl-dxdxout products) are added. Ask your doctor if you have any questions. THESE ARE THE MEDICATIONS YOU SHOULD BE TAKING clindamycin (clindamycin 150 mg oral capsule) 2 Capsule By Mouth 3 Times a day for 7 Days. Refills: 0. multivitamin (One-A-Day Multivitamin) 1 Tab(s) By Mouth once a day. MEDICATION CHANGE DETAILS (Not your Final Home Medication List) During the course of your visit, your home medication list was updated with the most current information. The details of those changes are shown below: NEW MEDICATIONS [facility] [place], [place], [address] [place], [place] [id number], [phone] clindamycin (clindamycin 150 mg oral capsule) 2 Capsule By Mouth 3 Times a day for 7 Days. Refills: 0. Comment UPDATED MEDICATIONS None UNCHANGED MEDICATIONS Other Medications multivitamin (One-A-Day Multivitamin) 1 Tab(s) By Mouth once a day. Comment STOP TAKING THESE MEDICATIONS valACYclovir (Valtrex 1 gm oral tablet) 1 Tab(s) By Mouth 3 Times a day. x10 days filled .09.22 but pt states he has a few doses left. DO NOT TAKE UNTIL YOU TALK TO YOUR DOCTOR None NON-MEDICATION PRESCRIPTION SCHEDULING PHONE NUMBER: SELECTED LAB RESULTS Lab Result Order Date Hemoglobin 13.8 gm/dL 02/22/2019 Hematocrit 40.9 % 02/22/2019 WBC Count 7.5 thou/mcL 02/22/2019 Platelet Count 289 thou/mcL 02/22/2019 Prothrombin Time (PT) 13.6 Sec 02/21/2019 INR 1.02 02/21/2019 Sodium Level 141 mMol/L 02/22/2019 Potassium Level 3.8 mMol/L 02/22/2019 Creatinine 1.15 mg/dL 02/22/2019 BUN 18 mg/dL 02/22/2019 Total Bilirubin 0.9 mg/dL 02/21/2019 Glucose Level 117 mg/dL 02/22/2019 ADVANCE DIRECTIVE/HEALTH CARE DECISIONS: Advance Directive/Health Care Decisions Executed by Patient: : No Information Obtained From: Patient Advance Directive Health Care Information Offered: Patient declines DISCHARGE INSTRUCTIONS: Discharge Activities As tolerated. Notify Physician Worsening or recurring symptoms. SMOKING CESSATION: Tobacco use is the number one preventable cause of and disease. Please stop all use of tobacco. Talk with your physician or call the [place] [employer] at or visit their web site atwww.lungusa.org. You can also contact the [place] [employer] at or visit their web site at www.Freedom2.org SUICIDE HOTLINE: Your mental and emotional well-being are important. If you are in a mental health crisis, or having thoughts of suicide, please call the nationwide suicide hotline, anytime day or night, at 0-096-730-RRZZ. Important information about accessing your health information through the [facility] patient portal If you initiated the self-registration process for [facility] during your stay, please check your personal email for an invitation to enroll in [facility] and complete the steps outlined in the email. If you would prefer to enroll while in the hospital, ask a member of your care team. We would be happy to assist you. If you have already enrolled in [facility], go to [email or web address] to login and access your health information. Thank you for choosing [facility]. PATIENT EDUCATION Rash A rash is a change in the color or texture of the skin. There are many different types of rashes. You may have other problems that accompany your rash. CAUSES ???Infections. ???Allergic reactions. This can include allergies to pets or foods. ???Certain medicines. ???Exposure to certain chemicals, soaps, or cosmetics. ???Heat. ???Exposure to poisonous plants. ???Tumors, both cancerous and noncancerous. SYMPTOMS ???Redness. ???Scaly skin. ???Itchy skin. ???Dry or cracked skin. ???Bumps. ???Blisters. ???Pain. DIAGNOSIS Your caregiver may do a physical exam to determine what type of rash you have. A skin sample (biopsy) may be taken and examined under a microscope. TREATMENT Treatment depends on the type of rash you have. Your caregiver may prescribe certain medicines. For serious conditions, you may need to see a skin doctor (field operations technician). HOME CARE INSTRUCTIONS ???Avoid the substance that caused your rash. ???Do not scratch your rash. This can cause infection. ???You may take cool baths to help stop itching. ???Only take vvhq-xxs-rdwugbh or prescription medicines as directed by your caregiver. ???Keep all follow-up appointments as directed by your caregiver. SEEK IMMEDIATE MEDICAL CARE IF: ???You have increasing pain, swelling, or redness. ???You have a fever. ???You have new or severe symptoms. ???You have body aches, diarrhea, or vomiting. ???Your rash is not better after 3 days. MAKE SURE YOU: ???Understand these instructions. ???Will watch your condition. ???Will get help right away if you are not doing well or get worse. This information is not intended to replace advice given to you by your health care provider. Make sure you discuss any questions you have with your health care provider. Document Released: 03/13/2003 Document Revised: 04/13/2015 Document Reviewed: 01/05/2012 [employer] Interactive Patient Education ?2016 [employer] Cellulitis Cellulitis is an infection of the skin and the tissue beneath it. The infected area is usually red and tender. Cellulitis occurs most often in the arms and lower legs. CAUSES Cellulitis is caused by bacteria that enter the skin through cracks or cuts in the skin. The most common types of bacteria that cause cellulitis are staphylococci and streptococci. SIGNS AND SYMPTOMS ???Redness and warmth. ???Swelling. ???Tenderness or pain. ???Fever. DIAGNOSIS Your health care provider can usually determine what is wrong based on a physical exam. Blood tests may also be done. TREATMENT Treatment usually involves taking an antibiotic medicine. HOME CARE INSTRUCTIONS ???Take your antibiotic medicine as directed by your health care provider. Finish the antibiotic even if you start to feel better. ???Keep the infected arm or leg elevated to reduce swelling. ???Apply a warm cloth to the affected area up to 4 times per day to relieve pain. ???Take medicines only as directed by your health care provider. ???Keep all follow-up visits as directed by your health care provider. SEEK MEDICAL CARE IF: ???You notice red streaks coming from the infected area. ???Your red area gets larger or turns dark in color. ???Your bone or joint underneath the infected area becomes painful after the skin has healed. ???Your infection returns in the same area or another area. ???You notice a swollen bump in the infected area. ???You develop new symptoms. ???You have a fever. SEEK IMMEDIATE MEDICAL CARE IF: ???You feel very sleepy. ???You develop vomiting or diarrhea. ???You have a general ill feeling (malaise) with muscle aches and pains. MAKE SURE YOU: ???Understand these instructions. ???Will watch your condition. ???Will get help right away if you are not doing well or get worse. This information is not intended to replace advice given to you by your health care provider. Make sure you discuss any questions you have with your health care provider. Document Released: 12/31/2005 Document Revised: 04/13/2015 Document Reviewed: 06/07/2012 [employer] Interactive Patient Education ?2016 [employer] VIRUSES OR BACTERIA: WHAT'S GOT YOU SICK? Antibiotics only treat BACTERIAL infections. VIRAL ILLNESSES do not get better with antibiotics. When an antibiotic is not prescribed, ask your healthcare professional for tips on how to relieve symptoms and feel better. Usual Cause Illness Viruses Bacteria Antibiotic Needed? Cold/Runny Nose X NO Bronchitis/Chest Cold (in otherwise healthy adults) X NO Whooping Cough X Yes Flu (not complicated by pneumonia) X NO Strep Throat X Yes Sore Throat X NO Fluid in the Middle Ear (otitis media with effusion) X NO Urinary Tract Infection X Yes For more information visit: www.cdc.gov/getsmart PATIENT DISCHARGE INSTRUCTION Signature Page for: JAMES RODRIGUEZ Date/Time: 02/23/2019 10:01:03 A Clinician has explained the information on my discharge instructions and has provided me with a copy. My questions have been answered to my satisfaction. Patient Signature Date/Time Responsible Party Date/Time Relationship to Patient _ Clinician Signature ____ Date/Time __ Normal [facility] Basic Metabolic Panelon 11- Anion gap [Moles/Vol] 8.0 mmol/L Normal 6.0-18.0 [facility] Comment on above: Performed By: #### 3 0341-2 #### SAH SED RATE #### 84462-7 #### [facility], [address]. Calcium [Mass/Vol] 8.7 mg/dL Low 8.9-10.3 [facility] Comment on above: Performed By: #### 3 0341-2 #### SAH SED RATE #### 69060-0 #### [facility], [address] [place], [place]. Chloride [Moles/Vol] 110 mmol/L High 98-107 [facility] Comment on above: Performed By: #### 3 0341-2 #### SAH SED RATE #### 56549-6 #### [facility], [address] [place], [place]. CO2 [Moles/Vol] 23 mmol/L Normal 22-32 [facility] Comment on above: Performed By: #### 3 0341-2 #### SAH SED RATE #### 47359-9 #### [facility], [address] [place], [place]. Creatinine [Mass/Vol] 1.15 mg/dL Normal 0.66-1.30 [facility] Comment on above: Performed By: #### 3 0341-2 #### SAH SED RATE #### 59137-1 #### [facility], [address] [place] [address]. Glucose [Mass/Vol] 117 mg/dL High 70-99 [facility] Comment on above: Result Comment: U pdated ADA Reference Range A normal fasting glucose concentration is less than 100 mg/dL. An impaired fasting glucose concentration is 100-125 mg/dL. A provisional diagnosis of diabetes mellitus can be made when a fasting glucose concentration is greater than 125 mg/dL. Performed By: #### 3 0341-2 #### SAH SED RATE #### 63976-5 #### [facility], [address] [place] [address]. Potassium [Moles/Vol] 3.8 mmol/L Normal 3.6-5.1 [facility] Comment on above: Performed By: #### 3 0341-2 #### SAH SED RATE #### 81039-1 #### [facility], [address] [place] [address]. Sodium [Moles/Vol] 141 mmol/L Normal 136-145 [facility] Comment on above: Performed By: #### 3 0341-2 #### SAH SED RATE #### 71779-8 #### [facility], [address] [place] [address]. Urea nitrogen (BldV) [Mass/Vol] 18 mg/dL Normal 8-20 [facility] Comment on above: Performed By: #### 3 0341-2 #### SAH SED RATE #### 34787-0 #### [facility], [address] [place] [address]. CBCon 02-22-2019 Erythrocyte distribution width (RBC) [Entitic vol] 15.0 % High 11.0-14.8 [facility] Comment on above: Performed By: #### 3 0341-2 #### SAH SED RATE #### 28211-7 #### [facility], [address]. Hematocrit (Bld) [Volume fraction] 40.9 % Normal 39.0-49.0 [facility] Comment on above: Performed By: #### 3 0341-2 #### SAH SED RATE #### 02779-4 #### [facility], [address]. Hemoglobin (Bld) [Mass/Vol] 13.8 g/dL Normal 13.5-17.5 [facility] Comment on above: Performed By: #### 3 0341-2 #### SAH SED RATE #### 60904-5 #### [facility], [address]. MCH (RBC) [Entitic mass] 30.8 Picograms Normal 27.0-34.0 [facility] Comment on above: Performed By: #### 3 0341-2 #### SAH SED RATE #### 20590-6 #### [facility], [address]. MCHC (RBC) [Mass/Vol] 33.7 g/dL Normal 32.0-36.0 [facility] Comment on above: Performed By: #### 3 0341-2 #### SAH SED RATE #### 70319-6 #### [facility], [address]. MCV (RBC) [Entitic vol] 91.2 fL Normal 80.0-97.0 [facility] Comment on above: Performed By: #### 3 0341-2 #### SAH SED RATE #### 31221-3 #### [facility], [address]. Platelet mean volume (Bld) [Entitic vol] 7.4 fL Normal 6.2-12.1 [facility] Comment on above: Performed By: #### 3 0341-2 #### SAH SED RATE #### 49993-0 #### [facility], [address]. Platelets (Bld) [#/Vol] 289 thou/mcL Normal 142-424 [facility] Comment on above: Performed By: #### 3 0341-2 #### SAH SED RATE #### 87543-4 #### [facility], [address]. RBC (Bld) [#/Vol] 4.48 million/mcL Normal 4.30-5.70 [facility] Comment on above: Performed By: #### 3 0341-2 #### SAH SED RATE #### 38071-0 #### [facility], [address] [facility] [place] WBC (Bld) [#/Vol] 7.5 thou/mcL Normal 4.6-10.2 [facility] Comment on above: Performed By: #### 3 0341-2 #### SAH SED RATE #### 87118-2 #### [facility], [facility] [place] [place] Complement Antigen C3on 02-04 Complement C3 [Mass/Vol] 148 mg/dL Normal 79-152 [facility] Comment on above: Performed By: #### 3 0341-2 #### SAH SED RATE #### 08222-2 #### [facility], [address]. Complement Antigen C4on 02-04 Complement C4 [Mass/Vol] 31 mg/dL Normal 16-38 [facility] Comment on above: Performed By: #### 3 0341-2 #### SAH SED RATE #### 75374-0 #### [facility], [address] Syphilis Screenon 02-22-2019 T. pallidum Ab IA Ql (S) NONREAC Normal NONREAC [facility] Comment on above: Result Comment: No s erologic evidence of syphilis. Performed By: #### 3 0341-2 #### SAH SED RATE #### 19943-0 #### [facility], [address] [place], [place]. Basic Metabolic Panelon 02-04 Anion gap [Moles/Vol] 11.0 mmol/L Normal 6.0-18.0 [facility] Comment on above: Performed By: #### 6 9405-9, 45202-0, 53559-7c2, 68727-0, #### [facility], [address] [place], [place]. Calcium [Mass/Vol] 9.0 mg/dL Normal 8.9-10.3 [facility] Comment on above: Performed By: #### 6 9405-9, 51038-2, 99949-0b5, 77751-1, #### [facility], [address] [facility], [place], [place]. Chloride [Moles/Vol] 103 mmol/L Normal 98-107 [facility] Comment on above: Performed By: #### 6 9405-9, 01374-7, 80588-7w9, 88679-8, #### [facility], [address] [facility], [place], [place]. CO2 [Moles/Vol] 24 mmol/L Normal 22-32 [facility] Comment on above: Performed By: #### 6 9405-9, 65999-2, 06168-4o3, 91652-8, #### [facility], [address]. Creatinine [Mass/Vol] 1.08 mg/dL Normal 0.66-1.30 [facility] Comment on above: Performed By: #### 6 9405-9, 00538-4, 24870-2l4, 69516-1, #### [facility], [address] [place], [place]. Glucose [Mass/Vol] 99 mg/dL Normal 70-99 [facility] Comment on above: Result Comment: U pdated ADA Reference Range A normal fasting glucose concentration is less than 100 mg/dL. An impaired fasting glucose concentration is 100-125 mg/dL. A provisional diagnosis of diabetes mellitus can be made when a fasting glucose concentration is greater than 125 mg/dL. Performed By: #### 6 9405-9, 38497-3, 99957-3e2, 53674-8, 1987-08 #### [facility], [address] [place], [place]. Potassium [Moles/Vol] 3.1 mmol/L Low 3.6-5.1 [facility] Comment on above: Performed By: #### 6 9405-9, 09032-8, 40053-8f4, 51178-6, #### [facility], [address] [place], [place]. Sodium [Moles/Vol] 138 mmol/L Normal 136-145 [facility] Comment on above: Performed By: #### 6 9405-9, 68804-1, 00200-6l0, 27024-7, #### [facility], [address] [place], [place]. Urea nitrogen (BldV) [Mass/Vol] 16 mg/dL Normal 8-20 [facility] Comment on above: Performed By: #### 6 9405-9, 31212-4, 20125-2f5, 60620-3, #### [facility], [address] [place], [place]. C-Reactive Proteinon 11-18-2 019 CRP [Mass/Vol] 1.4 mg/dL High <1.0 [facility] Comment on above: Performed By: #### 6 9405-9, 30597-0, 21965-4a6, 20370-0, 1988- 5 #### [facility], [address] [place], [place]. CBCon 02-21-2019 Erythrocyte distribution width (RBC) [Entitic vol] 14.8 % Normal 11.0-14.8 [facility] Comment on above: Performed By: #### 3 0341-2 #### SAH SED RATE #### 45108-2 #### [facility], [address] [facility] [place] Hematocrit (Bld) [Volume fraction] 43.0 % Normal 39.0-49.0 [facility] Comment on above: Performed By: #### 3 0341-2 #### SAH SED RATE #### 64756-4 #### [facility], [facility] [place] [place] Hemoglobin (Bld) [Mass/Vol] 14.6 g/dL Normal 13.5-17.5 [facility] Comment on above: Performed By: #### 3 0341-2 #### SAH SED RATE #### 86957-5 #### [facility], [facility] [place] MCH (RBC) [Entitic mass] 30.9 Picograms Normal 27.0-34.0 [facility] Comment on above: Performed By: #### 3 0341-2 #### SAH SED RATE #### 09631-6 #### [facility], [address] [facility] MCHC (RBC) [Mass/Vol] 34.0 g/dL Normal 32.0-36.0 [facility] Comment on above: Performed By: #### 3 0341-2 #### SAH SED RATE #### 81719-6 #### [facility], [address]. MCV (RBC) [Entitic vol] 91.0 fL Normal 80.0-97.0 [facility] Comment on above: Performed By: #### 3 0341-2 #### SAH SED RATE #### 58994-3 #### [facility], [address] [place], [place]. Platelet mean volume (Bld) [Entitic vol] 7.0 fL Normal 6.2-12.1 [facility] Comment on above: Performed By: #### 3 0341-2 #### SAH SED RATE #### 06074-1 #### [facility], [address] [place], [place]. Platelets (Bld) [#/Vol] 323 thou/mcL Normal 142-424 [facility] Comment on above: Performed By: #### 3 0341-2 #### SAH SED RATE #### 39053-1 #### [facility], [address] [place], [place]. RBC (Bld) [#/Vol] 4.72 million/mcL Normal 4.30-5.70 [facility] Comment on above: Performed By: #### 3 0341-2 #### SAH SED RATE #### 95415-0 #### [facility], [address] [place] [address]. WBC (Bld) [#/Vol] 10.7 thou/mcL High 4.6-10.2 [facility] Comment on above: Performed By: #### 3 0341-2 #### SAH SED RATE #### 66864-0 #### [facility], [address] [place], [place]. Culture Bloodon 02-21-2019 Bacteria identified Cx Nom (Bld) [facility] Microbiology PROCEDURE: Culture Blood SOURCE: Blood BODY SITE: COLLECTED DATE/TIME: 02/21/2019 20:04 EST RECEIVED DATE/TIME: 02/21/2019 20:04 EST START DATE/TIME: 02/21/2019 20:04 EST FREE TEXT SOURCE: BLOOD INTERFACED REPORTS Final Report [] Verified Date/Time/Personnel: 02/27/2019 00:24 EST CONTRIBUTOR_SYSTEM, CO_PN NO GROWTH AT 5 DAYS Preliminary Report [] Verified Date/Time/Personnel: 02/22/2019 00:30 EST CONTRIBUTOR_SYSTEM, CO_PN NO GROWTH. CULTURE IN PROGRESS. POSITIVE CULTURES WILL BE PHONED TO THE UNIT/FLOOR. Normal [facility] Comment on above: Performed By: #### 3 0341-2 #### SAH SED RATE #### 79863-8 #### [facility], [address] [place], [place]. Bacteria identified Cx Nom (Bld) [facility] Microbiology PROCEDURE: Culture Blood SOURCE: Blood BODY SITE: COLLECTED DATE/TIME: 02/21/2019 20:04 EST RECEIVED DATE/TIME: 02/21/2019 20:04 EST START DATE/TIME: 02/21/2019 20:04 EST FREE TEXT SOURCE: BLOOD INTERFACED REPORTS Final Report [] Verified Date/Time/Personnel: 02/27/2019 00:24 EST CONTRIBUTOR_SYSTEM, CO_PN NO GROWTH AT 5 DAYS Preliminary Report [] Verified Date/Time/Personnel: 02/22/2019 00:30 EST CONTRIBUTOR_SYSTEM, CO_PN NO GROWTH. CULTURE IN PROGRESS. POSITIVE CULTURES WILL BE PHONED TO THE UNIT/FLOOR. Normal [facility] Comment on above: Performed By: #### 6 00-7 #### [facility] [address], [place] GFRaaon 02-21-2019 GFR/1.73 sq M predicted among blacks MDRD (S/P/Bld) [Vol rate/Area] mL/min/{1.73_m2} Normal [facility] Comment on above: Result Comment: The MDRD equation has not been validated for those over 70 years, women, patients with serious co-morbid conditions, or with extremes of body size, muscle mass of nutritional status. Performed By: #### 6 9405-9, 75377-5, 28088-7g3, 95565-4, 1987-08 #### [facility], [address] [place], [place]. GFRbbon 02-21-2019 GFR/1.73 sq M predicted among non-blacks MDRD (S/P/Bld) [Vol rate/Area] mL/min/{1.73_m2} Normal [facility] Comment on above: Performed By: #### 6 9405-9, 86789-8, 73822-3o3, 54533-5, #### [facility], [address] [place], [place]. Hepatic Function Panelon Albumin [Mass/Vol] 4.2 g/dL Normal 3.5-4.8 [facility] Comment on above: Performed By: #### 6 9405-9, 82033-8, 22986-6p7, 60157-1, #### [facility], [address] [place], [place]. ALP [Catalytic activity/Vol] 90 Units/L Normal 32-91 [facility] Comment on above: Performed By: #### 6 9405-9, 36612-3, 31108-3t6, 17684-8, #### [facility], [address] [place], [place]. ALT [Catalytic activity/Vol] 36 Units/L Normal 14-63 [facility] Comment on above: Performed By: #### 6 9405-9, 48571-5, 96957-0y9, 56647-3, #### [facility], [address] [place], [place]. AST [Catalytic activity/Vol] 31 Units/L Normal 15-41 [facility] Comment on above: Performed By: #### 6 9405-9, 49550-1, 96779-1m5, 09539-4, #### [facility], [address] [place], [place]. Bilirubin [Mass/Vol] 0.9 mg/dL Normal 0.3-1.2 [facility] [place] Comment on above: Performed By: #### 6 9405-9, 44843-3, 90510-7d9, 09713-3, #### [facility], [address] [place], [place]. Bilirubin.direct [Mass/Vol] 0.1 mg/dL Normal 0.1-0.5 [facility] Comment on above: Performed By: #### 6 9405-9, 19852-7, 68194-5o2, 19292-4, #### [facility], [address] [place], [place]. Bilirubin.indirect [Mass/Vol] 0.8 mg/dL Normal 0.0-1.0 [facility] Comment on above: Performed By: #### 6 9405-9, 74324-7, 63401-4k2, 03298-9, #### [facility], [address] [place], [place]. Protein [Mass/Vol] 7.5 g/dL Normal 6.1-7.9 [facility] Comment on above: Performed By: #### 6 9405-9, 24506-6, 17516-1k8, 54205-9, #### [facility], [address] [place], [place]. Partial Thromboplastin Time (aPTT)on 02-21-2019 aPTT Coag (PPP) [Time] 31.1 Sec Normal 23.3-35.3 [facility] Comment on above: Result Comment: BRANDON SPAIN NOTE: OF SEPTEMBER 28, 2018,NEW NORMAL REFERENCE RANGE Performed By: #### 3 173-2, 5902-2 #### [facility], [address] [place], [place]. Prothrombin Timeon 9 INR Coag (Bld) [Relative time] 1.02 {INR} Normal [facility] Comment on above: Result Comment: The recommended therapeutic INR range for most cardiac indications is 2.0-3.0. For high intensity therapy(ie.mechanical heart valves), the recommended range is 2.5-3.5. Performed By: #### 3 173-2, 5902-2 #### [facility], [address] [place] [address]. PT Coag (PPP) [Time] 13.6 Sec Normal 11.9-14.7 [facility] Comment on above: Result Comment: BRANDON SPAIN NOTE: OF SEPTEMBER 28, 2018,NEW NORMAL REFERENCE RANGE Performed By: #### 3 173-2, 5902-2 #### [facility], [address] [place] [address]. Sedimentation Rate rbcon ESR (Bld) [Velocity] 78 mm/h High 0-15 [facility] Comment on above: Performed By: #### 3 0341-2 #### SAH SED RATE #### 53402-9 #### [facility], [address] [place] [address]. MRI LUMBAR SPINE W/OANDW/ CO NTon 05-11-2017 MRI LUMBAR SPINE W/OANDW/ CONT Final ReportAccession No: [id number] Performed: May 11 2017 7:10PMExamination: MRI LUMBAR SPINE W/OANDW/ CONTMRI OF THE LUMBAR SPINE WITH AND WITHOUT CONTRAST 05/11/2017COMPARISON: Lumbar MRI 05/27/2009.HISTORY: Lower back pain and left leg radiculopathy.TECHNIQUE: Multiplanar, multisequence MRI imaging lumbar spine wasperformedprior to and following administration of 10 mL MultiHance contrastintravenously.FIND INGS: The last fully formed disc space is presumed to represent L5/S1.There is a mild chronic compression fracture of L1 with approximately 20%lossof height and anterior wedging, new compared to the prior MRI. There is amildchronic compression fracture of L2 with 10% loss of height, new comparedto theprior MRI. Bone marrow signal is within normal limits, with no acutefractureor focal bone marrow edema.Posterior martha and pedicle screw fixation hardware is seen bilaterally atL4/L5with an interbody spacer, new compared to the prior MRI. There appears tohavebeen a left hemilaminectomy at L4/L5. No abnormal enhancement.Prominent Modic type II endplate degenerative changes are seen at L1/F3dwmB3/L5, new compared to the prior MRI. No acute fracture or dislocation.Conus terminates at the mid L1 level and is unremarkable in contour andsignal.No paraspinal mass or fluid collection. The visualized abdominal aorta isunremarkable in contour.T12/L1: Disc space narrowing.L1/L2: Disc space narrowing with mild disc bulging, causing slighteffacementof the ventral thecal sac.L2/L3: Disc space narrowing, disc bulging, and facet arthropathy, causingmildcentral canal stenosis and mild bilateral neural foraminal stenosis, newcompared to the prior MRI. The thecal sac measures approximately 8 mm.L3/L4: Disc space narrowing, disc bulging, and facet arthropathy, causingmildeffacement of the ventral thecal sac and moderate to severe bilateralneuralforaminal stenosis, not significantly changed.L4/L5: Disc space narrowing and facet arthropathy with small bilateralforaminal disc-osteophyte complexes, causing moderate bilateral neuralforaminal stenosis, mildly decreased in prominence compared to the priorstudy.L5/S1: Disc space narrowing and facet arthropathy with a small leftparacentraldisc extrusion with annular fissure, causing mild effacement of theventralthecal sac and left lateral recess with contact of the traversing left E9hsyhmqlzz, increased in prominence compared to the prior MRI. There is severebilateral neural foraminal stenosis due to disc space narrowing, facetarthropathy, and small bilateral foraminal osteophytes, increasedcompared tothe prior MRI.IMPRESSION:1. Posterior martha and pedicle screw fixation with interbody fusion and lefthemilaminectomy at L4/L5.2. Mild chronic compression fractures of T12 and L1, new compared to thepriorMRI of 2010. No acute osseous abnormality.3. At the L5/S1 level, there is disc space narrowing with a small leftparacentral disc extrusion with annular fissure and facet arthropathy,causingmild effacement of the ventral thecal sac and left lateral recess andseverebilateral neural foraminal stenosis, increased in prominence compared totheprior MRI of 2009.4. At the L2/L3 level, there is disc space narrowing, disc bulging, andfacetarthropathy, causing mild central canal stenosis and mild bilateral neuralforaminal stenosis, new compared to the prior MRI of 2009.5. Moderate to severe bilateral neural foraminal stenosis at L3/L4,unchanged.Moderate bilateral neural foraminal stenosis at L4/L5 is mildly decreasedinprominence compared to the prior preoperative MRI.Interpreting Physician: SREE STEVENSON M.D.Trans: sl : cc: Normal [facility] EMERG LumboSacral Spine 2-3 S- [id number] 04-09-2017 EMERG LumboSacral Spine 2-3 VWS- [id number] EXAM: EMERG LumboSacral Spine 2-3 S- [id number] [facility] JAMES RODRIGUEZ VISIT: [id number]: 1975 SEX: M DEPT NO: [id number] LOCATION: ER2 EXAM: EMERG LumboSacral Spine 2-3 [facility]- [id number]/09/2017 15:55:00 SIGNS AND SYMPTOMS: COMMENTS? PERTINENT SYMPTOMS: PERTINENT SYMPTOMS: pain, h/o fusion Requesting Provider: APOLLO CANALES [facility]: [phone]- Comparison: 2009The bones are normally mineralized. There is minimal anterior wedgingof L2 and L1 that was not apparent previously but has a chronicappearance. The remaining vertebral bodies are maintained in height.The patient has undergone decompressive laminectomies at the lower 2lumbar levels with pedicular screws in place. There is no suggestionof component failure. There is an interposed disc prosthetic at L4-Q8kerfnqsj located. There is moderate degenerative disc space losspresent at L5-S1, L3-L4. The spine is in normal alignment and theneural canal is of normal diameter.IMPRESSION:Postsu rgical changes of the lumbar spine without evidence ofcomponent failure. Progressive degenerative change and compression ofseveral of the upper lumbar vertebral bodies Performed By: Emerita Andrea 04/09/2017 15:55:00Signed By: BRIAN SANTANA MD 04/09/2017 16:08:00 Normal [facility] ER NOTEon 04-09-2017 ER NOTE TRIAGE (ThuApr 09, 2017 13:50 KM8)TRIAGE NOTES: PT REPORT HE HAS BACK ISSUES TO PREVIOUS FRACTURES. PT ST TODAY HE WENT OUT TO GET INTO HIS TRUCK WHEN HIS BACK POPPPED. PT REPORTS POP WAS LOWER LEFT. PT REPORTS BURNING PAIN DOWN TO LEFT FOOT. PT DENIES LOSS OF B/B. PT HAS GOOD PEDAL PULSES, APPEARS UNCOMFORTABLE. PT RESPERS EASY AND COLOR IS GOOD. (ThuApr 09, 2017 13:50 KM8)PATIENT: NAME: James Rodriguez, AGE: 41, GENDER: male, : ThuJul 09, 1975, TIME OF GREET: ThuApr 09, 2017 12:44, PREFERRED LANGUAGE: Nauruan, MRSA/VRE - verify: No, P/A Drug Screen Rq?: NO, SSN: [id number], KG WEIGHT: 102.51 (est.), , , Family MD: DOCTOR, NON-STAFF. (ThuApr 09, 2017 13:50 KM8) Zip Code: [facility], PHONE: [phone]. (ThuApr 09, 2017 15:24)ADMISSION: URGENCY: SABRINA LEVEL 3, DEPT: Emergency, BED: WAITING. (ThuApr 09, 2017 13:50 KM8)VITAL SIGNS: BP: 175/100, Pulse: 91, Resp: 18, Temp: 97.5, Pain: 10, O2 sat: 98 on (RA), Time: 04/09/2017 13:47. (ThuApr 09, 2017 13:47 KM8)COMPLAINT: Pt Wi Sts Back Pain. (ThuApr 09, 2017 13:50 KM8)CODE STATUS: FULLCODE. (ThuApr 09, 2017 13:50 KM8)PAIN: Triage assessment performed. (ThuApr 09, 2017 13:50 KM8)ABUSE SCREENING: No abuse verbalized or identified. (ThuApr 09, 2017 13:50 KM8)BH SCREENING: Are you here for ETOH, Substance abuse or mental health complaint?, No, Do you have thoughts about harming yourself or others?, No. (ThuApr 09, 2017 13:50 KM8)PROVIDERS: TRIAGE NURSE: Jacy Pritchett RN. (ThuApr 09, 2017 13:50 KM8)PREVIOUS VISIT ALLERGIES: NKDA. (ThuApr 09, 2017 13:50 KM8)KNOWN ALLERGIESNKDACURRENT MEDICATIONS (ThuApr 09, 2017 13:50 KM8)NoneHPI BACK (ThuApr 10, 2017 16:44 RJL)CHIEF COMPLAINT: Patient presents for evaluation of pain.HISTORIAN: History provided by patient.MECHANISM OF INJURY: was getting into truck and twisted wrong and felt pop.LOCATION: Symptoms are localized to the back, to lumbar spine.QUALITY: Pain is dull in nature, described as aching.ASSOCIATED WITH: No associated bladder incontinence, No associated bowel incontinence, No associated motor weakness, No associated numbness, Associated with sciatica, on the left.EXACERBATED BY: Patient's condition exacerbated by nothing.RELIEVED BY: Patient's condition relieved by nothing.ROS (ThuApr 10, 2017 16:45 RJL)CONSTITUTIONAL: Negative constitutional review of systems.EYES: Negative eye review of systems.GENITOURINARY MALE: Historian denies incontinence.MUSCULOSKELET AL: Historian reports back pain, Historian reports injury.PAST MEDICAL HISTORYMEDICAL HISTORY: History of hyperlipidemia, including high cholesterol, which has not been treated, chronic back pain spurs disk problems. (ThuApr 09, 2017 13:50 KM8)SURGICAL HISTORY MALE: L1,2,3 SURGERY DUE TO FRACTURES 04/09/2013. (ThuApr 09, 2017 13:50 KM8)PSYCHIATRIC HISTORY: No previous psychiatric history. (ThuApr 09, 2017 13:50 KM8)SOCIAL HISTORY: Patient currently uses tobacco, Patient has smoked for 20 years, Denies alcohol abuse, Denies drug abuse, Patient smokes tobacco, at 1, packs per day for 15, years; equating to 15, pack years of smoking. (ThuApr 09, 2017 13:50 KM8)FAMILY HISTORY: Family history is not contributory to this case. (ThuApr 09, 2017 13:50 KM8)NOTES: Nursing records reviewed, Medication list reviewed. (ThuApr 09, 2017 13:50 KM8) Nursing records reviewed, Agree with nursing records, Medication list reviewed. (ThuApr 10, 2017 16:45 RJL)PHYSICAL EXAMCONSTITUTIONAL: Vital Signs Reviewed, Patient afebrile, Pulse normal, Blood pressure, hypertensive, Respiratory rate normal, Patient appears non toxic, Patient alert and oriented to person, place and time. (ThuApr 10, 2017 16:46 RJL)HEAD: no Hammer's sign, No racoon sign. (ThuApr 10, 2017 16:46 RJL)EYES: Eye exam included findings of eyelids normal to inspection, Conjunctiva normal. (ThuApr 10, 2017 16:46 RJL)NECK: Neck exam included findings of normal range of motion, no meningeal signs. (ThuApr 10, 2017 16:46 RJL)RESPIRATORY CHEST: Respiratory exam included findings of, Breath sounds clear. (ThuApr 10, 2017 16:46 RJL)CARDIOVASCULAR: Cardiovascular exam included findings of heart rate regular rate and rhythm, Heart sounds normal. (ThuApr 10, 2017 16:46 RJL)ABDOMEN MALE: Abdominal exam included findings of abdomen nontender, no peritoneal signs. (ThuApr 10, 2017 16:46 RJL)BACK: Tenderness, midline to the lower back. (ThuApr 10, 2017 16:46 RJL)NEURO: Deep tendon reflexes normal, no focal motor deficits, no focal sensory deficits. (ThuApr 10, 2017 16:47 RJL)PSYCHIATRIC: Psychiatric exam included findings of patient oriented to person place and time, Normal affect. (ThuApr 10, 2017 16:46 RJL)VITAL SIGNSVITAL SIGNS: BP: 175/100, Pulse: 91, Resp: 18, Temp: 97.5, Pain: 10, O2 sat: 98 on (RA), Time: 04/09/2017 13:47. (ThuApr 09, 2017 13:47 KM8) BP: 163/116, Pulse: 93, Resp: 18, Pain: 10, O2 sat: 98 on (RA), Time: 04/09/2017 15:04. (ThuApr 09, 2017 15:04 LAL4) BP: 161/97, Pulse: 96, Resp: 18, Pain: 8, O2 sat: 99 on (RA), Time: 04/09/2017 16:00. (ThuApr 09, 2017 16:00 LAL4) BP: 179/111, Pulse: 92, Resp: 18, Pain: 7, O2 sat: 98 on (RA), Time: 04/09/2017 17:00. (ThuApr 09, 2017 17:00 LAL4) BP: 179/111, Pulse: 92, Resp: 18, Pain: 7, O2 sat: 98 on (RA), Time: 04/09/2017 17:00. (ThuApr 09, 2017 17:00 SM4) BP: 163/102, Pulse: 75, Resp: 18, Pain: 5, O2 sat: 96 on (RA), Time: 04/09/2017 17:43. (ThuApr 09, 2017 17:43 LAL4) BP: 173/130, Pulse: 88, Resp: 18, Pain: 4, O2 sat: 99 on (RA), Time: 04/09/2017 18:29. (ThuApr 09, 2017 18:29 LAL4)NURSING ASSESSMENT: BACK (ThuApr 09, 2017 15:03 SM4)NURSING DIAGNOSIS: Notes: PT TO ROOM C/O LOWER BACK PAIN. STATES WAS GETTING IN HIS TRUCK AND HEARD A POP. STATES THAT HE HAS SCREWS AND RODS IN BACK FROM [place]. REPORTS NO LOSS OF B/B. DENIES ANY OTC MEDS FOR SAME THING. NAD NOTED, JUST APPEARS UNCOMFORTABLE.CONSTITUTION AL: Patient arrives, ER CART, Gait steady, Patient appears, restless, uncomfortable, Patient cooperative, alert. Oriented to person, place and time, Skin warm, Skin dry, Skin normal in color, Mucous membranes pink, moist. Patient is well-groomed, Patient complains of LOWER BACK PAIN.PAIN: burning pain, sharp pain, to the lower back, Pain radiates, to the left leg, STATES BURNING PAIN TO LEFT LEG., Onset of pain 1100, constant, on a scale 0-10 patient rates pain as 10.BACK: Back assessment findings include tenderness to, the left lower back, Paresthesias described as, burning sensation, to the left lower extremities, no weakness to extremities, no incontinence of bowel or bladder, Right radial pulse +3(easily palpated, considered normal), Left radial pulse +3(easily palpated, considered normal), Left dorsalis pedis pulse +3(easily palpated, considered normal), Right dorsalis pedis pulse +3(easily palpated, considered normal).NOTES: Patient tolerated procedure well.SAFETY: Side rails up, Cart/Stretcher in lowest position, Family at bedside, Call light within reach, Hospital ID band on.NURSING ASSESSMENT: FALL RISK (ThuApr 09, 2017 15:03 SM4)INIGUEZ FALL SCALE: History of falling: No, Is there a secondary diagnosis: No, Ambulatory aid: None/BR/WC/Nurse(0), Gait/transferring: Normal/BR/Immobile (0), IV/heparin lock: Yes (20), Mental status: Oriented to own ability (0), Total: 20, No identified risk for fall, ., No, not upgrading the fall risk level based on nursing judgment, Cart in low position and wheels locked, Floor free of tripping/falling hazards, Call light and phone within patient's reach, Patient reminded to call for help.EVENTSATTENDING: MD Canales Richard saw the patient at ThuApr 09, 2017 15:08. (ThuApr 09, 2017 15:08 [facility])TRANSFER: Triage to Emergency Waiting. (ThuApr 09, 2017 13:50 KM8) Emergency Waiting to Emergency Department - Pod 2 28. (ThuApr 09, 2017 14:57 C) Removed from Emergency Emergency Department - Pod 2 28. (ThuApr 09, 2017 18:33 SM4)NURSING PROCEDURE: DISCHARGE NOTE (ThuApr 09, 2017 18:32 SM4)DISCHARGE: Patient discharged to home, ambulating without assistance, family driving, accompanied by //partner, Summary of Care printed/ provided, Transition record given to patient, Discharge instructions given to patient, Simple or moderate discharge teaching performed, Prescriptions given and instructions on side effects given, Name of prescription(s) given: PERCOCET, FLEXERIL.TIME: Transition record given to patient (includes List of Test and Procedures), No Barriers to Learning, Explained DCI, Handouts given for DCI, Patient Receptive to DCI, Cooperative with DCI.NOTES: Patient tolerated procedure well.NURSING PROCEDURE: NURSE NOTES (ThuApr 09, 2017 18:01 SM4)NURSES NOTES: Notes: PATIENT AMBULATES UP AND DOWN REYNOLDS WITH NO ASSISTANCE. STATES THAT HE IS WALKING BETTER.MEDICATION SERVICEDilaudid: Order: Dilaudid (hydromorphone hydrochloride) - Dose: 1 mg : Intramuscular Ordered by: Apollo Canales MD Entered by: Apollo Canales MD [facility] Apr 09, 2017 15:29 Authenticated using password., Acknowledged by: Colt Rose Shobha Apr 09, 2017 15:31 Documented as given by: Sony Rose R.N. [facility] Apr 09, 2017 15:39 Patient, Medication, Dose, Route, Schedule verified prior to administration., IM medication, Amount ( Dose ) given: 1 MG, Volume ( mL's ) given: 0.5 ML, Medication administered to right deltoid, Correct patient, time, route, dose and medication confirmed prior to administration, Patient advised of actions and side-effects prior to administration, Allergies confirmed and medications reviewed prior to administration, WARNING-You have been given a narcotic. Do not drive or operate machinery., Administered by SM4.: Follow Up : Decreased pain, On a scale 0-10 patient rates pain as 9, STATES HAS HELPED A LITTLE BIT BUT NOT MUCH. (ThuApr 09, 2017 16:07 4)Dilaudid: Order: Dilaudid (hydromorphone hydrochloride) - Dose: 1 mg : Intramuscular Ordered by: Apollo Canales MD Entered by: Apollo Canales MD [facility] Apr 09, 2017 17:14 Authenticated using password., Acknowledged by: Roberto Barajas Shobha Apr 09, 2017 17:18 Documented as given by: Sony Rose R.N. [facility] Apr 09, 2017 17:22 Patient, Medication, Dose, Route, Schedule verified prior to administration., IM medication, Amount ( Dose ) given: 1 MG, Volume ( mL's ) given: 0.5 ML, Medication administered to right deltoid, Correct patient, time, route, dose and medication confirmed prior to administration, Patient advised of actions and side-effects prior to administration, Allergies confirmed and medications reviewed prior to administration, WARNING-You have been given a narcotic. Do not drive or operate machinery., Administered by SM4.: Follow Up : Decreased pain, On a scale 0-10 patient rates pain as 5. (ThuApr 09, 2017 17:44 SM4)Flexeril: Order: Flexeril (cyclobenzaprine hydrochloride) - Dose: 10 mg : orally Ordered by: Apollo Canales MD Entered by: Apollo Canales MD [facility] Apr 09, 2017 15:30 Authenticated using password., Acknowledged by: Colt Rose [facility] Apr 09, 2017 15:31 Documented as given by: Sony Rose R.N. [facility] Apr 09, 2017 15:39 Patient, Medication, Dose, Route, Schedule verified prior to administration., Amount ( Dose ) given: 10 MG, Volume ( mL's ) given: 1 TAB, Site: Medication administered P.O., Correct patient, time, route, dose and medication confirmed prior to administration, Patient advised of actions and side-effects prior to administration, Allergies confirmed and medications reviewed prior to administration, Administered by [facility].Toradol: Order: Toradol (ketorolac tromethamine) - Dose: 30 mg : Intramuscular Ordered by: Apollo Canales MD Entered by: Apollo Canales MD [facility] Apr 09, 2017 15:29 Authenticated using password., Acknowledged by: Colt Rose Sony [facility] Apr 09, 2017 15:31 Documented as given by: Sony Rose R.N. [facility] Apr 09, 2017 15:39 Patient, Medication, Dose, Route, Schedule verified prior to administration., IM medication, Amount ( Dose ) given: 30 MG, Volume ( mL's ) given: 1 ML, Medication administered to left deltoid, Correct patient, time, route, dose and medication confirmed prior to administration, Patient advised of actions and side-effects prior to administration, Allergies confirmed and medications reviewed prior to administration, Administered by [facility].ORDERS (ThuApr 09, 2017 15:28 RJL)ER LUMBAR SPINE: Ordered by: MD Canales Richard Ordered for: MD Canales Richard Status: Active.RESULTS (ThuApr 09, 2017 16:26 RJL)RADIOLOGY: EMERG LumboSacral Spine 2-3 VWS- [id number] ThuApr 09, 2017 15:55, See comment below EXAM: EMERG LumboSacral Spine 2-3 VWS- [id number] [facility] Department of Radiology JAMES RODRIGUEZ VISIT: [id number] : 1975 SEX: M DEPT NO: [id number] PATIENT LOCATION: ER2 EXAM: EMERG LumboSacral Spine 2-3 VWS- [id number] 04/09/2017 15:55:00 SIGNS AND SYMPTOMS: ^COMMENTS? PERTINENT SYMPTOMS: PERTINENT SYMPTOMS: pain, h/o fusion Requesting Provider: APOLLO CANALES - Comparison: 2009 The bones are normally mineralized. There is minimal anterior wedging of L2 and L1 that was not apparent previously but has a chronic appearance. The remaining vertebral bodies are maintained in height. The patient has undergone decompressive laminectomies at the lower 2 lumbar levels with pedicular screws in place. There is no suggestion of component failure. There is an interposed disc prosthetic at L4-L5 normally located. There is moderate degenerative disc space loss present at L5-S1, L3-L4. The spine is in normal alignment and the neural canal is of normal diameter. IMPRESSION: Postsurgical changes of the lumbar spine without evidence of component failure. Progressive degenerative change and compression of several of the upper lumbar vertebral bodies Performed By: Emerita Andrea 04/09/2017 15:55:00 Signed By: BRIAN SANTANA MD 04/09/2017 16:08:00 .DIAGNOSIS (ThuApr 09, 2017 18:25 [facility])FINAL: PRIMARY: suspected herniated disk, ADDITIONAL: sciatica.DISPOSITIONPATIEN T: Disposition: 01 Home or Self Care, Disposition Transport: Family/Friend Drive, Condition: GOOD. (ThuApr 09, 2017 18:25 [facility]) Patient left the department. (ThuApr 09, 2017 18:33 [facility])INSTRUCTION (ThuApr 09, 2017 18:27 [facility])DISCHARGE: SCIATICA, HERNIATED DISK.FOLLOWUP: Follow up with Primary Care Physician In 3 to 5 days, Follow up with Primary Specialist Keep appointment as scheduled.PRESCRIPTIONFlex eril: Tablet : 10 Mg : Oral : Quantity: 1 Unit: tab(s) Route: Oral Schedule: three times a day as needed Dispense: 12 Unit: tab(s) May substitute. Refills: No Refills POTENTIAL MODERATE INTERACTION: Percocet 5/325 [oxyCODONE] POTENTIAL MODERATE INTERACTION: Dilaudid (hydromorphone hydrochloride) [HYDROmorphone] Notes: , No Refills May fill with generic unless noted EDDI. (ThuApr 09, 2017 18:27 RJL)Percocet 5/325: Tablet : 325 Mg-5 Mg : Oral : Quantity: 1-2 Unit: tab(s) Route: Oral Schedule: Every 4-6 hours as needed Dispense: 15 Unit: tab(s) May substitute. Refills: No Refills POTENTIAL MODERATE INTERACTION: Flexeril [cyclobenzaprine] Notes: , ICD 10 - M54.17 Days Supply - 2 days No Refills May fill with generic unless noted EDDI. (ThuApr 09, 2017 18:28 RJL)ADMINDIGITAL SIGNATURE: Peace Mejia R.N. (ThuApr 09, 2017 23:33 LRC1) MD Canales Richard. (ThuApr 10, 2017 16:48 RJL) MYLES Powell Lindsay A. (ThuApr 20, 2017 23:17 LAL4) GEORGIE Pritchett Kateri. (ThuApr 22, 2017 12:13 KM8) Colt Rose Seth. (ThuApr 23, 2017 22:57 [facility])[place]: KM8=GEORGIE Pritchett Kateri LAL4=MYLES Powell Lindsay A. LRC1=Peace Mejia R.N. RJL=MD Canales Richard 4=Colt Rose Seth [facility]=Colt Alford William H.DPKUHMIKH74/04/2018 13:50:42 BP 175/ 13:50:42 PULSE 13:50:42 RESP 18004/09/2017 13:50:42 TEMP 97. 13:50:42 PAIN 10004/09/2017 13:50:42 O2 13:50:42 TIME 04/09/2017 13:47Entered By: GEORGIE Pritchett Kateri04/09/2017 15:04:34 BP 163/1327004/09/2017 15:04:34 PULSE 15:04:34 RESP 15:04:34 PAIN 10004/09/2017 15:04:34 O2 98004/09/2017 15:04:34 TIME 04/09/2017 15:04Entered By: MYLES Powell Lindsay A.04/09/2017 16:18:42 BP 161/9704/09/2017 16:18:42 PULSE 9604/09/2017 16:18:42 RESP 16:18:42 PAIN 16:18:42 O2 9904/09/2017 16:18:42 TIME 04/09/2017 16:00Entered By: MYLES Powell Lindsay A.04/09/2017 17:43:42 BP 179 17:43:42 PULSE 17:43:42 RESP 17:43:42 PAIN 17:43:42 O2 17:43:42 TIME 04/09/2017 17:00Entered By: MYLES Powell Lindsay A.04/09/2017 17:44:05 BP 179 17:44:05 PULSE 17:44:05 RESP 17:44:05 PAIN 17:44:05 O2 17:44:05 TIME 04/09/2017 17:00Entered By: Colt Rose, Webber04/09/2017 17:44:08 BP 163/4999704/09/2017 17:44:08 PULSE 75004/09/2017 17:44:08 RESP 17:44:08 PAIN 501 17:44:08 O2 17:44:08 TIME 04/09/2017 17:43Entered By: MYLES Powell Lindsay A.04/09/2017 18:30:06 BP 173/7049704/09/2017 18:30:06 PULSE 8804/09/2017 18:30:06 RESP 18:30:06 PAIN 401 18:30:06 O2 9901 18:30:06 TIME 04/09/2017 18:29Entered By: MYLES Powell Lindsay A.[id number] [place] [address] FINAL DIAGNOSIS suspected herniated disk ADDITIONAL DIAGNOSIS sciatica FOLLOWUP CONTACTS DOCTOR, NON-STAFF, Follow up with Primary Care Physician In 3 to 5 daysFollow up with Specialist Keep appointment as scheduled. MEDICAL INSTRUCTIONS HERNIATED DISK You have been diagnosed with a herniated disk (commonly referred to as a slipped disk). Your spine contains bones called vertebrae. In between the bones there are soft cushions called disks. The disks keep the vertebrae from rubbing against each other. Inside of each disk is a thick jelly-like substance called the nucleus pulposus. Sometimes when the spine is injured, a disk is damaged and the nucleus pulposus leaks out of the disk. This is called a disk herniation. As people age, the disks become brittle and fragile. If this happens, you might have a disk herniation, even if you don't recall having an injury. Sometimes a herniated disk presses on a nerve in the spine. This causes pain near the herniated disk (usually in the neck or low back). If the herniation is in the neck, you might feel pain down one of your arms. If the herniation is in the low back, you may feel pain shooting down your leg. You might also have numbness (pins and needles or loss of feeling) in your arm or leg.Most of the time, herniated disks are treated with rest, physical therapy, and medication to stop swelling and pain. If these treatments fail, surgery may be needed. Sometimes taking steroids (like Prednisone) for a few days can reduce the back pain. YOU SHOULD SEEK MEDICAL ATTENTION IMMEDIATELY, EITHER HERE OR AT THE NEAREST EMERGENCY DEPARTMENT, IF ANY OF THE FOLLOWING OCCURS:- Loss of bowel or bladder control (you soil or wet yourself).- Weakness or inability to walk or use your leg(s) or arm(s).- Pain not relieved by pain medication.- Fever (temperature over 100.5? F) or shaking chills.- Severe pain that settles over one particular vertebrae (bone) in your back. SCIATICA You have been diagnosed with sciatica.Sciatica is a general term for low back pain or pain in the hip and buttocks which usually travels part way down the leg. It rarely goes below the knees. The pain can be very severe and can last for a few days up to a few weeks. One of the most common causes of this type of pain is a pinched nerve (from a slipped disk). Sometimes the exact cause of the pain is never determined.Treatment for this problem includes rest and pain medications. Steroids may be helpful, especially if the cause is a pinched nerve.YOU SHOULD SEEK MEDICAL ATTENTION IMMEDIATELY, EITHER HERE OR AT THE NEAREST EMERGENCY DEPARTMENT, IF ANY OF THE FOLLOWING OCCURS:- You develop numbness (loss of feeling) and/or tingling (pins and needles) in your legs.- You develop weakness in your legs that keeps you from being able to stand or walk, or makes you stumble or trip over your own feet.- You develop any problems controlling your bowels or bladder (you soil or wet yourself).- (MEN) You are unable to have an erection.- Your symptoms become worse.- You have any fevers or shaking chills, especially with an increase in back pain. PRESCRIPTIONS (2) Printed (2) Percocet 5/325 : Tablet : 325 Mg-5 Mg : Oral Quantity: 1-2, Unit: tab(s), Route: Oral, Schedule: Every 4-6 hours as needed, Dispense: 15 Unit: tab(s) Flexeril : Tablet : 10 Mg : Oral Quantity: 1, Unit: tab(s), Route: Oral, Schedule: three times a day as needed, Dispense: 12 Unit: tab(s)ATTENTION ALL [facility] EMERGENCY DEPARTMENT PATIENTS:PLEASE BE AWARE that it is a felony to obtain narcotic medication under false pretenses or by deception. This includes obtaining such medication from more than one prescriber of pharmacy by deception,alteration of prescriptions and any other misrepresentation (by act or omission) to obtain these medications. We are required by law to cooperate with law enforcement officials conducting a felony investigation and, in that event, no privilege or confidentiality will protect from disclosure to law enforcement that part of your medical record that is pertinent to their investigation.Please visit our website at [email or web address] for additional health and wellness information and visit [email or web address] using the password [email or web address] to access videos about health related issues. Normal [facility] Vital Signs Date Time Vital Sign Value Performing Clinician Facility 06-17-2024 15:33-0400 Body temperature 97.3 [degF] Dr. Rey Steiner DPM Work Phone: [facility] 06-17-2024 15:33-0400 Diastolic blood pressure 74 mm[Hg] Dr. Rey Steiner DPM Work Phone: [facility] 06-17-2024 15:33-0400 Heart rate 81 /min Dr. Rey Steiner DPM Work Phone: [facility] 06-17-2024 15:33-0400 Respiratory rate 16 /min Dr. Rey Steiner DPM Work Phone: [facility] 06-17-2024 15:33-0400 SaO2% (BldA) [Mass fraction] 98 % Dr. Rey Steiner DPM Work Phone: [facility] 06-17-2024 15:33-0400 Systolic blood pressure 120 mm[Hg] Dr. Rey Steiner DPM Work Phone: [facility] 06-17-2024 14:30-0400 Inhaled oxygen flow rate 3 L/min Dr. Rey Steiner DPM Work Phone: [facility] 06-17-2024 08:26-0400 Body height 177.[address] Rey Steiner DPM Work Phone: [facility] 06-17-2024 08:26-0400 Body mass index (BMI) [Ratio] 39.2 kg/m2 Dr. Rey Steiner DPM Work Phone: [facility] 06-17-2024 08:26-0400 Body weight 123.[address] Rey Steiner DPM Work Phone: [facility] 06-23-2019 11:37-0400 BMI (Body Mass Index) 35.04 kg/m2 Mallorypurvi Mccormack [facility] 06-23-2019 11:37-0400 Body weight 110.76 kg Mallorypurvi Mccormack [facility] 06-23-2019 11:37-0400 BP Diastolic 95 mm[Hg] Mallorypurvi [facility] 06-23-2019 11:37-0400 BP Systolic 149 mm[Hg] Mallorypurvi [facility] [facility] 06-23-2019 11:37-0400 Height 177.8 cm Mallorypurvi ChambersPushpa [facility] 06-23-2019 11:37-0400 Pulse (Heart Rate) 76 /min Mallorypuriv [facility]Pushpa [facility] 06-23-2019 11:37-0400 Pulse Oximetry 97 % Mallorypurvi [facility]Pushpa [facility] 06-23-2019 11:37-0400 Respiratory Rate 16 /min Mallory Pushpa [facility] 06-08-2019 08:34-0500 Body Temperature 98.4 [degF] [facility] 06-08-2019 08:34-0500 BP Diastolic 92 mm[Hg] [facility] 06-08-2019 08:34-0500 BP Systolic 152 mm[Hg] [facility] 06-08-2019 08:34-0500 Pulse (Heart Rate) 68 /min [facility] 06-08-2019 08:34-0500 Pulse Oximetry 97 % [facility] 05-31-2019 08:43-0500 Respiratory Rate 15 /min [facility] 05-31-2019 07:44-0500 Body Temperature 98.01 [degF] [facility] 05-31-2019 07:44-0500 BP Diastolic 87 mm[Hg] [facility] 05-31-2019 07:44-0500 BP Systolic 148 mm[Hg] [facility] 05-31-2019 07:44-0500 Pulse (Heart Rate) 63 /min [facility] 05-31-2019 07:44-0500 Pulse Oximetry 95 % [facility] 05-26-2019 08:05-0500 BMI (Body Mass Index) 32.43 kg/m2 [facility] 05-26-2019 08:05-0500 Body weight 102.51 kg Toni Rodas [facility] 05-26-2019 08:05-0500 Height 177.8 cm Toni Rodas [facility] Encounters Encounter Date Encounter Type Care Provider Facility Start: 10-22-2024 ambulatory Rey Steiner Facility :[facility] Start: 09-18-2024 End: 09-18-2024 Emergency department patient visit GABINO LLOYD DO~[id number] Facility:[facility] Start: 07-11-2024 End: 07-11-[address] Rey Steiner DPM Work Phone: [facility] Work Phone: Start: 07-11-2024 End: 07-11-[address] Nellie Loyola MD -Laboratory, Specimen Work Phone: Start: 07-11-2024 End: 07-11-2024 ambulatory Nellie Loyola Facility:[facility] Start: 06-17-2024 End: 06-17-2024 Admission to same day surgery center Dr. Rey Steiner DPM -Surgical Day Care Start: 06-17-2024 End: 06-17-[address] Rey Steiner DPM Work Phone: [facility] Work Phone: Start: 06-09-2024 End: 06-09-2024 ambulatory [facility] [facility] Start: 06-01-2024 ambulatory NELLIE LOYOLA [facility] Start: 05-27-2024 ambulatory Rey Steiner Facility :[facility] Start: 05-10-2024 End: 05-10-[address] Rey Steiner DPM -Cat Scan, [facility] Work Phone: Start: 05-10-2024 End: 05-10-2024 ambulatory Nellie Loyola Facility:[facility] Start: 04-20-2024 ambulatory Nellie Loyola Facili ty:[facility] Start: 04-20-2024 Non-patient / Non-visit Dr. Amish yoder MD -[facility] Start: 04-20-2024 End: 04-20-[address] Rey Steiner DPZoya -Pulmonary Services/Neurology Work Phone: Start: 04-20-2024 End: 04-20-2024 ambulatory Rey Steiner Facility:[facility] Start: 03-14-2024 End: 03-14-2024 [facility] Start: 03-04-2024 End: 03-04-2024 ambulatory [facility] Start: 09-15-2022 Release of Information Provide r Not In [facility] Radiology External Films Start: 09-15-2022 OLIVIER Legacy Provider Not I n [facility] Radiology External Films Start: 04-01-2021 End: 04-01-2021 ambulatory ANUP ZAMORAE Facility:[facility] Start: 02-10-2021 End: 02-14-2021 Emergency department patient visit AMADEO BASSETT JULIET [facility] Start: 02-10-2021 End: 02-11-2021 ambulatory TRAUMA [facility] Start: 02-10-2021 End: 02-10-2021 ambulatory KEDAR MORALES Facility:[facility] Start: 12-22-2020 End: 12-23-2020 ambulatory NICK STRONGDWELL Facility:[facility] Start: 06-23-2019 End: 06-23-2019 Patient encounter procedure MALLORY MCCORMACK [facility] Ambulatory Start: 06-23-2019 End: 06-23-2019 Office outpatient new 30 minutes Mallory Mccormack Work Phone: [facility] Comment on above: Benign essential HTN (Primary Dx); Palpitations Start: 06-08-2019 End: 06-08-2019 Office outpatient visit 15 minutes Lula Bermeo Work Phone: [facility] Trauma [facility] Acute [facility] Surgery Comment on above: Closed fracture of n larry bone with routine healing, subsequent encounter (Primary Dx); Concussion with loss of consciousness, subsequent encounter Start: 05-27-2019 Patient encounter procedure BETO MUNSONNZ [facility] Start: 05-26-2019 End: 05-31-2019 Evaluation and management of inpatient Toni Jones Parish Sullivan Work Phone: [facility] Comment on above: Closed head injury, initial encounter (Primary Dx); Contusion of face, initial encounter; Left arm pain; Closed fracture of nasal bone, initial encounter; Left-sided weakness; Encounter for imaging to screen for metal prior to MRI Start: 05-11-2017 Ambulatory Ivett Swathi Ibanez Faci lity:[place] Start: 05-11-2017 End: 05-11-2017 Ambulatory Ivett Ibanez Work Phone: [facility] Start: 04-09-2017 End: 04-09-2017 Emergency department patient visit APOLLO Arabella CANALES Facility:. Procedures Date Procedure Procedure Detail Performing Clinician Start: 07-11-[address] Rey Steiner DPM Work Phone: Start: 07-11-2024 Microbial culture, routine Dr. Rey hernandez DPM Work Phone: Start: 06-17-[address] Rey Steiner DPM Work Phone: Start: 06-17-2024 X-ray of foot, two views Dr. Rey reyes DPM Work Phone: Start: 06-17-[address] Rey Steiner DPM Work Phone: Start: 05-10-2024 MRI of lower extremity Dr. Rey jeffers DPM Work Phone: Start: 06-23-2019 12 lead ECG Mallory Guido Work Phone: Start: 05-31-2019 Adult depression screening assessment Provider System Start: 05-30-2019 Glucose [Mass/volume] in Blood Francisco Osman Work Phone: Start: 05-29-2019 Glucose [Mass/volume] in Blood Francisco Osman Work Phone: Start: 05-27-2019 MRI of brain and brain stem Delio min Work Phone: Start: 05-27-2019 XR MR BALJEET le Work Phone: Start: 05-27-2019 Analysis of arterial blood gases and pH Hugo Dietz Work Phone: Start: 05-27-2019 CT of entire head Millie Mast Herrera Work Phone: Start: 05-27-2019 Ammonia [Mass/volume] in Plasma Sabina House Work Phone: Start: 05-27-2019 Basic metabolic 2000 panel - Serum or Plasma Aleksandr Salas Work Phone: Start: 05-27-2019 Complete blood count (hemogram) panel - Blood by Automated count Aleksandr Salas Work Phone: Start: 05-27-2019 Glucose [Mass/volume] in Blood Francisco Parish Posada Work Phone: Start: 05-27-2019 Hemoglobin A1c/Hemoglobin.total in Blood Beto De La Paz Work Phone: Start: 05-27-2019 Hepatic function 2000 panel - Serum or Plasma Aleksandr Salas Work Phone: Start: 05-27-2019 OBTAIN ARTERIAL BLOOD GASES AND PERFORM Sabina House Work Phone: Start: 05-26-2019 CT angiography of pulmonary and abdominal and pelvic arteries Francisco Osman Work Phone: Start: 05-26-2019 CT of maxillofacial area without contrast Francisco Osman Work Phone: Start: 05-26-2019 Ct thoracic spine w/o contrast material Francisco Osman Work Phone: Start: 05-26-2019 CT angiography of neck vessels Francisco Osman Work Phone: Start: 05-26-2019 Radex humerus minimum 2 views Aleksandr anthony Work Phone: Start: 05-26-2019 Radex forearm 2 views Toni Kedar Sullivan Work Phone: Start: 05-26-2019 Radex hand minimum 3 views Toni Rodriguezpurvi Rodas Work Phone: Start: 05-26-2019 Choriogonadotropin [Units/volume] in Serum or Plasma Toni Rodas Work Phone: Start: 05-26-2019 RUBIO TOP Toniseema Rodas Work Phone: Start: 05-26-2019 LAVENDER TOP Toni Kedar Rodas Work Phone: Start: 05-26-2019 LIGHT BLUE TOP Toni Jones Parish Sullivan Work Phone: Start: 05-26-2019 LIGHT GREEN TOP Toin Kedar Rodas Work Phone: Start: 05-26-2019 MINT GREEN TOP Toni Jones Parish Sullivan Work Phone: Start: 05-26-2019 PINK TOP Toni Jones Parish Sullivan Work Phone: Start: 05-26-2019 RAINBOW DRAW Toni Kedar Parish Sullivan Work Phone: Start: 05-26-2019 End: 05-26-2019 Computerized tomography, limited studies External Transcribed Plan of Treatment Date Care Activity Detail Author Start: 05-26-2029 Tetanus vaccination [facility] Start: 06-17-2024 Anes open proc bones lower leg/ankle/foot nos ANESTH LOWER LEG BONE SURG [facility] Start: 06-17-2024 Arthrodesis subtalar ARTHRODESIS SUB TALAR [facility] Start: 06-17-2024 Injection aa&/strd o ther peripheral nerve/branch NJX AA&/STRD OTHER PN/BRANCH [facility] Start: 06-17-2024 Unlisted procedure arthroscopy UNLISTED PX ARTHROSCOPY [facility] Start: 06-17-2024 Catheterization of vein [facility] Start: 06-17-2024 Neurovascular assessment [facility] Start: 06-17-2024 Patient discharge [facility] Start: 06-17-2024 Procedure discontinued [facility] Start: 06-17-2024 Vital signs measurements [facility] Start: 06-17-2024 [facility] Start: 06-17-2024 Provision of mobilit y device [facility] Start: 12-05-2022 Influenza vaccination Sequenti al Influenza Vaccine (#1) [facility] Start: 05-31-2020 Depression screening using PHQ-9 (Patient Health Questionnaire 9) score Depression Screening (PHQ-2/9) [facility] Start: 07-08-2019 End: 07-08-2019 Office Visit [facility], Neuro[facility] Start: 06-23-2019 End: 06-23-2019 Office Visit 06/23/2019 Office Visit Cardiology Mallory Mccormack DO [address] [place] [address] [phone] [facility] Start: 12-05-2018 Influenza vaccinatio n given SEQUENTIAL INFLUENZA VACCINE (#1) [facility] Start: 07-10-1995 Hepatitis C screening Hepatitis C Sc reening [facility] Start: 1992 HIV screening HIV Screening [facility] Start: 1980 History and physical examination, annual for health maintenance Wellness Visit [facility] Start: 01-08-1978 COVID-19 Vaccine (#1) COVID-19 Vacci ne (#1) [facility] Start: 1977 Prostate specific an tigen measurement PSA Level [facility] Start: 1977 Screening for malign ant neoplasm of colon [facility] End: 05-30-2019 24 Hour ECG Holter monitor - 24 hour Cardiac Services Routine Once for 1 Occurrences starting 05/30/2019 until 05/30/2019 [facility] Comment on above: Once for 1 Occurrenc es starting 05/30/2019 until 05/30/2019 24 Hour ECG Holter monitor - 24 hour Cardiac Services Routine 05/30/2019 3:10 PM EST [facility] Patient Education Post-Op Tips: Foot [facility] Work Phone: Patient referral [facility] Work Phone: Immunizations Immunization Date Immunization Notes Care Provider Fa cility 05-26-2019 tetanus toxoid, redu aramis diphtheria toxoid, and acellular pertussis vaccine, adsorbed Toni Rodas [facility] 05-26-2019 diphtheria, tetanus toxoids and acellular pertussis vaccine, unspecified formulation Toni Parish Beltrangennaro [facility] Payers Date Payer Category Payer Self-pay 2019 Medicaid [id number] 2019 Medicaid [employer] xxxxxxxxxxx 2019-Present xxxxxxxxxxx [id number] 2019 Medicaid [employer] MED[employer] [id number] 2019-Present [phone] [address] [place] [address] [id number] 1977 Unknown [id number] [id number] 0 1977 Unknown [id number] 2.16.840.1.826902.3.579.2.90 3 1977 Unknown [id number] 2.16.840.1.667108.3.579.2.90 2 1977 Unknown [id number] 2.16.840.1.183027.3.579.2.90 2 1977 Unknown [id number] 2.16.840.1.667962.3.579.2.90 2 1977 Unknown [id number] 2.16.840.1.579745.3.579.2.65 1 1977 Unknown [id number] 2.16.840.1.925381.3.579.2.65 1 1977 Unknown [id number] 2.16.840.1.440989.3.579.2.65 1 1977 Unknown [id number] 2.16.840.1.704858.3.579.2.41 9 1959 Unknown [id number] Unknown [id number] Unknown [id number] Unknown [place] [place] Effective for all dates xxxxxxxxx [id number]. [id number] Unknown INCARCERATIONS I [place] [id number] Effective for all dates [phone] [place] [id number]. [id number] Unknown [id number] Unknown [id number] 2.16.840.1.954216.3.579.2.46 2 Unknown [id number] 2.16.840.1.378231.3.579.2.46 2 Unknown [id number] 2.16.840.1.706062.3.579.2.46 2 Unknown [id number] 2.16.840.1.263244.3.579.2.46 2 Unknown [id number] 2.16.840.1.963210.3.579.2.46 2 Unknown [id number] 2.16.840.1.621652.3.579.2.46 2 Unknown [id number] 2.16.840.1.822363.3.579.2.46 2 Social History Date Type Detail Facility Start: 05-12-2017 Tobacco smoking stat us [facility] Unknown if ever smoked [facility] Work Phone: Start: 1975 Sex Assigned At Not on file O [facility] Work Phone: Start: 05-27-2019 End: 06-08-2019 Tobacco smoking status NHIS Current some day smoker [facility] Start: 06-23-2019 End: 06-16-2024 Tobacco smoking status NDIS Former smoker [facility] History of tobacco use Current smoker [facility] Start: 02-10-2021 Tobacco use and exposure Smokeless tobacco non-user [facility] Start: 02-22-2021 Alcohol intake Ex-drinker (finding) [facility] Start: 05-30-2019 End: 02-22-2021 History of Social function [facility] Start: 05-30-2019 End: 02-22-2021 Tobacco use panel [facility] PHQ-2 Score 0 [facility] Start: 06-17-2024 End: 07-15-2024 Sex Male (finding) [facility] Start: 1975 Sex Assigned At Male [facility] Medical Equipment Procedure Code Equipment Code Equipment Origin al Text Equipment Identifier Dates Fusion, subtalar joint 7.0 x 80mm Screw FDA Start: 06-17-2024 Fusion, subtalar joint 7.0 x 80mm Screw FDA Start: 06-17-2024 Fusion, subtalar joint Tendon/ligament bone anchor, bioabsorbable [id number] FDA Start: 06-17-2024 Fusion, subtalar joint Tendon/ligament bone anchor, bioabsorbable ()[id number] FDA Start: 06-17-2024 Fusion, subtalar joint [id number] FDA Start: 06-17-2024 Fusion, subtalar joint [id number] FDA Start: 06-17-2024 Goals Date Patient Goal Desired Activity /State Mental Status Date Assessment Result Facility 06-17-2024 Cognitive function Voice/Name [facility] Work Phone: Consult note 06-17-2024 Note Date & Type Note Facility 06-17-2024 Consult note [facility] Radiology Diagnostic study note 06-17-2024 Note Date & Type Note Facility 06-17-2024 Radiology Diagnostic study note [facility] Imaging Services [address] [place], [place] [address] Foot 2 Views MR#: [id number] Acct: [id number] Name: JAMES RODRIGUEZ II Rep #: [id number] : 1975 M 48 From: Brenna Poe MD PCP: Dr. Nellie Loyola MD Status: R NATACHA SLADE Study:Foot 2 Views Date of Exam: 5 Exam# [id number] Ordering Dr: Rey Steiner DPZoya EXAM: XR Left Foot, 2 Views CLINICAL INDICATION: LT SUBTALAR JOINT FUSION TECHNIQUE: Frontal and lateral views of the left foot. COMPARISON: No relevant prior studies available. FINDINGS: BONES/JOINTS: Spot fluoroscopic images were used intraoperatively. 18 images were obtained. Multiple fixation hardware is identified from the calcaneus to the talus. Total fluoroscopy time 175.4 seconds. Total radiation dose 2.24 mGy. No acute fracture. No dislocation. SOFT TISSUES: Unremarkable. No radiopaque foreign body. RAD/Foot 2 Views IMPRESSION: Fluoroscopic guidance was used intraoperatively. Please refer to the operative note for further details. Reading [facility] CC: Zoya Steiner; Dr. 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 Nellie Loyola MD Status:R [facility] Y Race: C Location: [place] [address] ASA Classification* ASA Classification ASA Classification: 2 Assessment & Plan Anesthesia* Anesthesia Assessment Anesthesia Assessment: Discussed sedation and/or anesthesia options, risks, benefits, and alternatives with patient/parents/legal guardian/POA. Questions invited. The patient/parents/legal guardian/POA seems to understand and agrees to proceedwith anesthesia plan. Reviewed the physical assessment, medical history, allergy history and patient home medications list prior to surgery/procedure/anesthetic and documented any changes. Performed airway and anesthesia risk assessments. 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
== END | disposition home or self-care (01) ==
LOC: CT 07:59
PROVIDERS: PCP Student in an Organized Health Care Education/Training Program; Referring Provider Podiatrist; Visit Provider Podiatrist
DX: M19.072 Primary osteoarthritis, left ankle and foot (principal)
CPT/HCPCS: 73700